=== PATIENT | female | born 1955 | race Caucasian/White ===

== ENCOUNTER → 2023-08-14 13:26 | Outpatient (REF) | payer MEDICARE, OTHER, SELFPAY | LOC: WDC 13:26 | PROVIDERS: ATTENDING PHYSICIAN Physician Assistant Medical | DX: R92.8 Other abnormal and inconclusive findings on diagnostic imaging of breast (principal) | CPT/HCPCS: 77061; 77065 ==

== ENCOUNTER → 2023-09-22 13:01 | Outpatient (REF) | payer MEDICARE, OTHER, SELFPAY | LOC: HWRAD 13:01 | PROVIDERS: ATTENDING PHYSICIAN Family Medicine | DX: Z87.891 Personal history of nicotine dependence (principal) | CPT/HCPCS: 71271 ==

== ENCOUNTER → 2023-11-25 15:26 | Outpatient (REF) | payer MEDICARE, OTHER, SELFPAY | LOC: RAD 15:26 | PROVIDERS: ATTENDING PHYSICIAN Physician Assistant Medical | DX: Z13.6 Encounter for screening for cardiovascular disorders (principal); Z87.891 Personal history of nicotine dependence | CPT/HCPCS: 76770 ==

== ENCOUNTER → 2023-12-24 09:15 | Outpatient (REF) | payer MEDICARE, OTHER, SELFPAY | LOC: DHSLP 09:15 | PROVIDERS: ATTENDING PHYSICIAN Internal Medicine; FAMILY PHYSICIAN Physician Assistant Medical | DX: G47.33 Obstructive sleep apnea (adult) (pediatric) (principal); G47.61 Periodic limb movement disorder | CPT/HCPCS: 95811 ==

== ENCOUNTER → 2024-02-16 12:11 | Outpatient (REF) | payer MEDICARE, OTHER, SELFPAY | LOC: HWWDC 12:11 | PROVIDERS: ATTENDING PHYSICIAN Physician Assistant Medical | DX: Z12.31 Encounter for screening mammogram for malignant neoplasm of breast (principal) | CPT/HCPCS: 77063; 77067 ==

== ENCOUNTER 2024-02-26 06:09 | Inpatient (IN) | payer MEDICARE, OTHER, SELFPAY ==
[2024-02-26] VITALS (11 sets, daily range): BP systolic 126–169; BP diastolic 63–100; BMI 34.6; BMI 31.7
[2024-02-26 02:46] LABS: % Basophils 0.6 % (0-2); % Eosinophils 0.8 % (0-6); % Immature Granulocytes 0.3 % (0-0.5); % Lymphocytes 10.1 % (20.5-51.1); % Monocytes 5.1 % (1.7-9.3); % Neutrophils 83.1 % (42.2-75.2); Absolute Basophils 0.1 10^3/uL (0-0.2); Absolute Eosinophils 0.1 10^3/uL (0-0.7); Absolute Lymphocytes 1.1 10^3/uL (1.2-3.4); Absolute Monocytes 0.6 10^3/uL (0.1-0.6); Hematocrit 43.3 % (37.0-47.0); Hemoglobin 14.9 g/dL (12.0-16.0); Mean Corp Hgb Conc. 34.4 g/dL (33.0-37.0); Mean Corpuscular Hgb 28.8 pg (27.0-31.0); Mean Corpuscular Volume 83.8 fL (81.0-99.0); Mean Platelet Volume 9.9 fL (7.4-10.4); Nucleated Red Blood Cells % 0 %; Platelet Count 274 10^3/uL (130-400); Red Blood Cell Count 5.17 10^6/uL (4.20-5.40); Red Cell Dist. Width 13.3 % (11.5-14.5); White Blood Cell Count 10.8 10^3/uL (4.8-10.8)
[2024-02-26] MEDS: NSS 1000 IV ×2 (02:48→09:38)
[2024-02-26 02:57] LABS: INR 1.12; PT 14.5 Sec (11.4-14.6)
[2024-02-26] MEDS: DILAUDID 0.5 MG IV ×5 (02:57→23:07)
[2024-02-26 02:58] LABS: APTT 26.2 Sec (23.4-35.0)
[2024-02-26 03:12] LABS: Troponin I < 0.012 ng/ml
[2024-02-26 03:16] LABS: ALT (SGPT) 72 U/L (0-35); AST (SGOT) 71 U/L (14-36); Alkaline Phosphatase 158 U/L (38-126); Blood Urea Nitrogen 17 mg/dl (7-17); Calcium 10.3 mg/dl (8.4-10.2); Carbon Dioxide 24 mmol/L (22-30); Chloride 99 mmol/L (98-107); Estimated Creatinine Clearance 53 ml/min; Glucose 192 mg/dl (70-99); Lipase 78 U/L (23-300); Sodium 138 mmol/L (135-145); Total Bilirubin 1.3 mg/dl (0.2-1.3); Total Protein 7.7 g/dl (6.3-8.2); eGFR > 60.00
--- NOTE | 2024-02-26 03:17 | ED.GENMED ---
History of Present Illness
<MARIPOSA Workman - Last Filed: 02/26/24 05:03>
General
Chief Complaint: Abdominal Pain
Time Seen by Provider: 02/26/24 02:25
History of Present Illness
History of Present Illness:
Patient is a 68 y/o female with PMHx/surgical history of Crohns dz with multiple bowel resections, colectomy with end ileostomy, bowel obstruction, migraines, HTN, HLD, anemia, anxiety, depression presenting with abdominal pain x1 day. She states
that she has not been putting anything out of her ileostomy today. She states that at around 6pm she started to get intermittent shooting pain in her abdomen. She states it is all along the left side and into the left flank. She states it started
mild and has continued to get worse. She states that she gets the pain every 10 minutes and it lasts for a minute or two. She states she became nauseous and has had 5 bouts of nonbloody emesis last night. She states she attempted to but an enema
through her ileostomy at around 9pm last night to try to help with the symptoms. She states she has difficulty urinating for a couple years and denies any changes or dysuria. She denies any chest pain, shortness of breath, vision changes.
Past History
<MARIPOSA Workman - Last Filed: 02/26/24 05:03>
Past History
ED Past Medical History: HTN, Psychiatric and Other (Crohn's disease)
ED Past Surgical History: Appendectomy, Bowel resection (Ileostomy) and Other (Multiple surgeries, rectovaginal fistula repair, hernia repair)
Social History
Tobacco: Non-smoker
Alcohol: None
Drug: None
Personal:
Living: with family
Employment: Other
Family History
Family History: Hypertension and Other
Phy Exam
<MARIPOSA Workman - Last Filed: 02/26/24 05:03>
Physical Exam
Physical Exam:
GENERAL: Alert , uncomfortable, in no apparent distress
EYE: pupils equal and reactive
Throat: Airway intact, no exudates
NECK: Supple, no significant adenopathy.
CARDIAC: Regular rate and rhythm .
LUNGS: Clear breath sounds bilaterally, no acute respiratory distress, no wheezes/rales/rhonchi
ABDOMEN: Tenderness to palpation in the entire left quadrant. Soft, nondistended. No cvat. Normoactive bowel sounds.
NEUROLOGICAL: Alert and oriented x3, following commands, no focal neuro deficits. Strength and sensation intact in all upper and lower extremities.
SKIN: Warm and dry, skin intact.
MUSCULOSKELETAL: No edema, well perfused.
PSYCH: Normal and appropriate interaction.
Course
<Fortino Haque [facility] - Last Filed: 02/26/24 05:03>
Orders/Labs/Results
Orders:
Orders
02/26/24 02:25
0.9% Sodium Chloride 1000 ml [Nss] 1,000 ml IV BOLUS
02/26/24 02:26
Electrocardiogram (*1) Stat
Reason for Study: Abdominal Pain
EKG- Treatment ONCE
02/26/24 02:30
Lactic Acid Q4H
Comment: CANCEL 2nd LACTIC ACID IF 1st LACTIC ACID IS LESS THAN 2
02/26/24 02:38
HYDROmorphone [Dilaudid] 0.5 mg .ROUTE .STK-MED ONE
02/26/24 02:39
Complete Blood Count/With Diff Urgent
Comprehensive Metabolic Panel Urgent
Lactic Acid Urgent
Lipase Urgent
PTT Urgent
Prothrombin Time Urgent
Troponin I Urgent
02/26/24 02:55
HYDROmorphone [Dilaudid] 0.5 mg IV NOW STA
02/26/24 03:31
CT Abd/pelvis W Iv Cont Urgent
Comment:
Reason For Exam: diffuse abd pain
02/26/24 04:04
Urinalysis Reflex To Culture Urgent
Date Specimen was Collected: 02/26/24
Time Specimen was Collected: 03:59
02/26/24 06:30
Lactic Acid Q4H
Comment: CANCEL 2nd LACTIC ACID IF 1st LACTIC ACID IS LESS THAN 2
Abnormal Lab Results
02/26/24
02:39
Absolute Neuts (auto) 9.0 H 10^3/uL
(1.4-6.5)
Absolute Lymphs (auto) 1.1 L 10^3/uL
(1.2-3.4)
Neutrophils % 83.1 H %
(42.2-75.2)
Lymphocytes % 10.1 L %
(20.5-51.1)
Glucose 192 H mg/dl
(70-99)
Lactic Acid 3.0 H mmol/L
(0.7-2.0)
Calcium 10.3 H mg/dl
(8.4-10.2)
AST 71 H U/L
(14-36)
ALT 72 H U/L
(0-35)
Alkaline Phosphatase 158 H U/L
(38-126)
02/26/24 02:39
02/26/24 02:39
Vital Signs
Initial and Last Documented VS:
Initial Vital Signs
Temp Pulse Resp BP Pulse Ox
99.4 F 105 22 141/100 95
02/26/24 02:15 02/26/24 02:15 02/26/24 02:15 02/26/24 02:15 02/26/24 02:15
Last Documented Vital Signs
Temp Pulse Resp BP Pulse Ox
99.4 F 105 22 169/74 95
02/26/24 02:15 02/26/24 02:15 02/26/24 02:15 02/26/24 04:05 02/26/24 04:06
<Bienvenido Bautista, DO - Last Filed: 02/26/24 04:53>
Orders/Labs/Results
Orders:
Orders
02/26/24 02:25
0.9% Sodium Chloride 1000 ml [Nss] 1,000 ml IV BOLUS
02/26/24 02:26
Electrocardiogram (*1) Stat
Reason for Study: Abdominal Pain
EKG- Treatment ONCE
02/26/24 02:30
Lactic Acid Q4H
Comment: CANCEL 2nd LACTIC ACID IF 1st LACTIC ACID IS LESS THAN 2
02/26/24 02:38
HYDROmorphone [Dilaudid] 0.5 mg .ROUTE .STK-MED ONE
02/26/24 02:39
Complete Blood Count/With Diff Urgent
Comprehensive Metabolic Panel Urgent
Lactic Acid Urgent
Lipase Urgent
PTT Urgent
Prothrombin Time Urgent
Troponin I Urgent
02/26/24 02:55
HYDROmorphone [Dilaudid] 0.5 mg IV NOW STA
02/26/24 03:31
CT Abd/pelvis W Iv Cont Urgent
Comment:
Reason For Exam: diffuse abd pain
02/26/24 04:04
Urinalysis Reflex To Culture Urgent
Date Specimen was Collected: 02/26/24
Time Specimen was Collected: 03:59
02/26/24 06:30
Lactic Acid Q4H
Comment: CANCEL 2nd LACTIC ACID IF 1st LACTIC ACID IS LESS THAN 2
Abnormal Lab Results
02/26/24
02:39
Absolute Neuts (auto) 9.0 H 10^3/uL
(1.4-6.5)
Absolute Lymphs (auto) 1.1 L 10^3/uL
(1.2-3.4)
Neutrophils % 83.1 H %
(42.2-75.2)
Lymphocytes % 10.1 L %
(20.5-51.1)
Glucose 192 H mg/dl
(70-99)
Lactic Acid 3.0 H mmol/L
(0.7-2.0)
Calcium 10.3 H mg/dl
(8.4-10.2)
AST 71 H U/L
(14-36)
ALT 72 H U/L
(0-35)
Alkaline Phosphatase 158 H U/L
(38-126)
02/26/24 02:39
02/26/24 02:39
Vital Signs
Initial and Last Documented VS:
Initial Vital Signs
Temp Pulse Resp BP Pulse Ox
99.4 F 105 22 141/100 95
02/26/24 02:15 02/26/24 02:15 02/26/24 02:15 02/26/24 02:15 02/26/24 02:15
Last Documented Vital Signs
Temp Pulse Resp BP Pulse Ox
99.4 F 105 22 169/74 95
02/26/24 02:15 02/26/24 02:15 02/26/24 02:15 02/26/24 04:05 02/26/24 04:06
<MARIPOSA Workman - Last Filed: 02/26/24 05:03>
MDM/Problems Addressed
Differential Diagnosis Includes:
Pancreatitis, bowel obstruction, diverticulitis, Crohn's flair
<MARIPOSA Workman - Last Filed: 02/26/24 05:03>
*Pulse Oximetry
Patient hypoxic: no
*EKG
Interpreted by ED Provider?: Yes
EKG Intrepretation Date: 02/26/24
Interpretation: abnormal
Comparison EKG: changes noted (QT lengthened )
Heart Rate: 90
Rate: normal
Rhythm: sinus
[place]: normal axis
Interval: long QT (420)
QRS Pattern: normal QRS
Ischemia: no ischemia
*Pie Maker Interpretation
Rate: Pie Maker- N/A
*Critical Care Note
Total Time (30-74mins, 75-104mins- exclusive of procedures): Not Applicable
<Bienvenido Bautista DO - Last Filed: 02/26/24 04:53>
Update Note
Update Note:
CT abdomen and pelvis with IV contrast
IMPRESSION:
Few dilated loops of small bowel localized to the left hemiabdomen suspicious for obstruction with transition point at the surgical anastomosis, series 201, image 46 for example. Stomach decompressed.
Hepatic steatosis. No cholecystitis or pancreatitis. No obstructing renal stone. Abdominal aorta is of normal caliber.
Finalized at 4:19 AM EST
ED Attending Note
<MARIPOSA Workman - Last Filed: 02/26/24 05:03>
-
Portions of this chart may have been created with voice recognition software.� Occasional wrong word or��sound alike� substitutions may have occurred due to the inherent limitations of voice recognition software.
<Bienvenido Bautista DO - Last Filed: 02/26/24 04:53>
ED Attending Note
Patient seen and examined by attending physician: Yes
I performed the substantive portion of visit, reviewed & personally made and approve the management plan that is documented in note by myself or AMANDA.: Yes
ED Attending Note:
Pleasant 68-year-old female presents with diffuse abdominal pain. Patient has a history of Crohn's disease and had multiple bowel resections. The first in 1993. She recently had an ileostomy 5 years ago. Today around 6 PM she started to get
abdominal pain which was sharp in nature. She states that this pain is reminiscent of previous bowel obstructions. Patient states that the pain comes in waves, every 10 minutes or so. Patient denies fever or chills. Patient attempted to clean
out her ileostomy with an enema but it did not help.
CT abdomen and pelvis with IV contrast
IMPRESSION:
Few dilated loops of small bowel localized to the left hemiabdomen suspicious for obstruction with transition point at the surgical anastomosis, series 201, image 46 for example. Stomach decompressed.
Hepatic steatosis. No cholecystitis or pancreatitis. No obstructing renal stone. Abdominal aorta is of normal caliber.
Finalized at 4:19 AM EST
Discharge Plan
Departure
Patient Disposition: Admit
Date of Disposition: 02/26/24
Time of Disposition: 04:51
Admit to: Telemetry
Presentation/result/management discussed w/ accepting MD/DO: Hospitalist
Discharge Problem:
SBO (small bowel obstruction)
Prescriptions:
No Action
alprazolam 0.5 MG tablet
1.5 mg PO HS
Patient Comments:
08/29/20- [facility] lookup, pt last filled 08/17/20 #90
meclizine 12.5 MG tablet
12.5 mg PO TIDPRN PRN (Reason: vertigo)
famotidine 20 MG tablet
20 mg PO DAILY
nwkvftm-oovnzpxfibggx-hjirmwrb 1 TABLET tablet
1 - 2 tab PO BIDPRN PRN (Reason: headache)
fenofibrate nanocrystallized 145 MG tablet
145 mg PO .W/DINNER
ropinirole 1 MG tablet
3 mg PO HS
pantoprazole 40 MG tablet,delayed release (DR/EC)
40 mg PO HS
escitalopram oxalate 20 MG tablet
20 mg PO DAILY
bupropion HCl 150 MG tablet extended release 24 hr
150 mg PO DAILY
losartan [Cozaar] 100 MG tablet
100 mg PO DAILY
melatonin 10 MG tablet
10 mg PO HS
phenylephrine HCl 10 MG tablet
10 mg PO
Referrals:
Soni Sun PA-C [Family Provider] -
Interventions
Interventions:
*Risk Screen - Suicide Last Done: 02/26/24 02:15
*General Assessment Last Done: 02/26/24 02:15
*Neglect/Abuse Screening Last Done: 02/26/24 02:15
ED- Fall Risk Assessment Last Done: 02/26/24 02:15
*ED COVID-19 Vaccine History Last Done: 02/26/24 02:15
LI-Qzeoru-Otkgqjtwds Assessment Last Done: 02/26/24 03:01
Discharge Date and Time
Print Language: SOMALI
[2024-02-26 04:33] LABS: Urine Albumin Negative (Neg - Trace); Urine Bilirubin Negative (Negative); Urine Character Clear (Clear); Urine Color Yellow; Urine Glucose Negative (Negative); Urine Ketone Negative (Negative); Urine Leukocyte Negative (Negative); Urine Nitrite Negative (Negative); Urine Occult Blood Negative (Negative); Urine Urobilinogen Negative (Neg - 1+)
--- NOTE | 2024-02-26 05:28 | HPS.HSE ---
Family Physician
-
Family Physician: Soni Sun
Chief Complaint
-
abdominal pain, N/V
History of Present Illness
HPI
68F HX Crohn dz with multiple bowel resections, colectomy with end ileostomy, SBO, HTN , anemia seen at ER for evalaution of diffuse abdominal pian.
- associated no ileectomy output
- associated intermittent colicky sharp abdominal pain and along the the left side and into the left flank.
- POS Nausea and 5 bouts of nonbloody emesis last night
ROS
difficulty urinating for a couple years and denies any changes or dysuria.
She denies any chest pain, shortness of breath, vision changes.
Medical History
Past Medical History
Past Medical History: Reports HTN, Psychiatric and Other (crohns dz )
Past Surgical History: Reports Other
Additional Past Surgical History:
Appendectomy, Bowel resection (Ileostomy), Other (Multiple surgeries, rectovaginal fistula repair, hernia repair))
Social History
Tobacco: Non-smoker
Alcohol: None
Drug: None
Personal:
Living: With Family
Family History
Family History: Not pertinent
Allergies / Home Medications
Allergies reflects when Allergies were last updated in [facility].
Home Medications with original date entered in [facility]
Allergy/Medication List:
Allergies
Allergy/AdvReac Type Severity Reaction Status Date / Time
adhesive Allergy blisters Verified 02/26/24 02:15
morphine Allergy Hives Verified 02/26/24 02:15
Home Medications
alprazolam 0.5 mg tablet 1.5 mg PO HS Mental Health/Anxiety 11/25/12
igwjtbi-zectuviolfcez-ivxjtsaa 250 mg-250 mg-65 mg tablet 1 - 2 tab PO BIDPRN PRN headache 07/30/20
famotidine 20 mg tablet 20 mg PO DAILY 07/30/20
fenofibrate nanocrystallized 145 mg tablet 145 mg PO .W/DINNER High cholesterol 07/30/20
meclizine 12.5 mg tablet 12.5 mg PO TIDPRN PRN vertigo 07/30/20
bupropion HCl 150 mg 24 hr tablet, extended release 150 mg PO DAILY Mental Health/Anxiety 08/29/20
escitalopram oxalate 20 mg tablet 20 mg PO DAILY Mental Health/Anxiety 08/29/20
pantoprazole 40 mg tablet,delayed release 40 mg PO HS Gastrointestinal issue 08/29/20
ropinirole 1 mg tablet 7 mg PO HS restless leg syndrome 08/29/20
losartan 100 mg tablet (Cozaar) 100 mg PO DAILY 10/20/21
melatonin 10 mg tablet 10 mg PO HS 10/20/21
phenylephrine HCl 10 mg tablet 10 mg PO Daily PRN Migranes 10/21/21
metformin 500 mg tablet 500 mg PO Daily 02/26/24
Review of Systems
-
Constitutional: Reports No Symptoms
EENT: Reports No Symptoms
Respiratory: Reports No Symptoms
Cardiac: Reports No Symptoms
Abdomen/GI: Reports Abdominal Pain, Nausea and Vomiting
: Reports No Symptoms
Musculoskeletal: Reports No Symptoms
Skin: Reports No Symptoms
Neurological: Reports No Symptoms
Endocrine: Reports No Symptoms
Hematologic/Lymphatic: Reports No Symptoms
Psych: Reports No Symptoms
Physical Exam
Vital Signs
Vital Signs
Temp Pulse Resp BP Pulse Ox
99.4 F 105 22 169/74 95
02/26/24 02:15 02/26/24 02:15 02/26/24 02:15 02/26/24 04:05 02/26/24 04:06
Physical Exam
General: Well Developed, Well Nourished and No Apparent Distress
HEENT: NormoCephalic
Respiratory: Clear
Cardiac: S1/S2
Breast: Deferred by me
GI: Soft, Non Tender, Normal Bowel Sounds (sluggish ) and Ostomy (no out put )
Rectal: Deferred by Provider
Musculoskeletal: No Edema
Neuro: AO x 3 and No Motor Deficits
Psych: Calm and Intact Judgment/Insight
Laboratory Results
-
02/26/24 02:39
02/26/24 02:39
Laboratory Results
PT 14.5 Sec (11.4-14.6) 02/26/24 02:39
INR 1.12 02/26/24 02:39
APTT 26.2 Sec (23.4-35.0) 02/26/24 02:39
Lactic Acid 3.0 mmol/L (0.7-2.0) H 02/26/24 02:39
Total Bilirubin 1.3 mg/dl (0.2-1.3) 02/26/24 02:39
AST 71 U/L (14-36) H 02/26/24 02:39
ALT 72 U/L (0-35) H 02/26/24 02:39
Alkaline Phosphatase 158 U/L (38-126) H 02/26/24 02:39
Troponin I < 0.012 ng/ml 02/26/24 02:39
Lipase 78 U/L (23-300) 02/26/24 02:39
Data Reviewed
-
CT Scan: Report Reviewed by me
Lab Data: Labs Reviewed by me
Impression/Plan
-
Data
Unremarkable CBC
Unremarkable BMP
BG 190
Pending LA
Ca 10.3
AST 71 - baseline 50s to 70s
ALT 72 - baseline 30s to 40s
AKP 160
NEG TPNI
NEG UA
EKG
NORMAL SINUS RHYTHM
NONSPECIFIC ST ABNORMALITY
PROLONGED QT
ABNORMAL ECG
WHEN COMPARED WITH ECG OF 02-JUL-2020 13:05,
QT HAS LENGTHENED
CT A w IV contrast
suspicious for SBO with transition point at the surgical anastomosis
Hepatic steatosis
Last hospitalist admission: 10/20/21 - 10/23/21
P DXs:
SBO
Dehydration
chr mild transaminitis due to Hepatic steatosis
ASSESSMENT & PLAN
Pending Rx reconciliation
SBO likely 2/2 adhesions form prior multiple surgeries
HX Crohn disease
HX end ileostomy,
- associated dehydration
- CT suspicious for SBO with transition point at the surgical anastomosis
- NPO/IVF/Pain control/anti-emetics
- GS consulted
Chr mild transaminitis flare related to SBO and underlying hepatic statosis
- follow CMP
GERD
- PPI
Knwon HX
Essential HTN
Mood disorder
HLD
Anxiety/Depression
- Hold all home regimen due to NPO for SBO
DVT ppx: LMWH
Code: Full
IP MS
[2024-02-26 06:43] LABS: Lactic Acid 1.9 mmol/L (0.7-2.0)
[2024-02-26] MEDS: TIGAN 200 MG IM (07:06)
--- NOTE | 2024-02-26 08:34 | CON.GS ---
Addendum entered and electronically signed by Sukhjinder Morales MD 02/26/24 11:27:
Patient seen and examined.
Patient is a 68 yo F with a PMH of depression/anxiety, RLS, AMAYA, iron deficiency anemia, DAWSON, and Crohn's disease s/p multiple operations ultimately resulting in a TAC with end ileostomy and multiple prior SBR's c/b several ventral incisional
hernias repaired primarily. All of her prior procedures have been performed at outside hospitals. She currently follows at [facility] with Dr. Robles. She has had recurrent issues with SBO's. Her most recent admission to was back in 2021, which
was able to be managed medically. Ms. Avalos presents with 24 hours of abdominal pain, nausea, vomiting. She has not had significant stoma output over the past 24 hours. Currently she states that her symptoms are improved, but still present.
No fevers. Of note, she is not currently on any treatment for her Crohn's disease.
Gen: NAD
Abd: soft, tender to palpation in LEFT abdomen, moderate distension, obese, non-peritoneal (no rebound or guarding)
Labs and CT scan imaging was reviewed.
Patient is a 68 yo F p/w SBO secondary to adhesions versus Crohn's disease
Patient well versed on the natural history and pathophysiology of bowel obstructions. No clinical or radiographic concerns for bowel ischemia, pneumatosis, or perforation. Recommend trial of medical management. GI consult given history of Crohn's
disease. Discussed that should he have she had further episodes of nausea or vomiting would recommend placement of an NG tube. Patient refusing at this time. All questions answered.
-- NPO, IVF, NGT placement if further nausea or emesis (refusing at this time)
-- Correct lytes, OOB, minimize narcotics
-- GI consult
Original Note:
Medical History
-
History of Present Illness:
Ms Avalos is a 68 yo female with h/o recurrent SBO's, Crohn's for which she follows at [facility] with Dr. Robles and 14 prior abdominal surgeries for bowel resections and hernia repairs with prior colostomy and now an ileostomy. She has been admitted
for multiple bowel obstructions in the past with her last admission being in 2021 here at with resolution with medical management alone at that time. At home, she notes intermittent obstructions which she has been able to manage on her own with
bowel rest. Yesterday, she began developing abdominal pain around 6:30pm. She ordered dinner at a restaurant with her but was unable to eat it. Later that night, her pain worsened and she began vomiting. She notes she vomited brown liquid
and undigested food. She tried a fleet enema via her stoma as this occasionally helps when she has obstructive symptoms but with no results. She notes that she has not noted any stool or flatus via her stoma since yesterday morning. On exam, the
abdomen is distended with tenderness to the LUQ. There is a soft, large parastomal hernia present without tenderness. She notes she has not vomited or had nausea since receiving Zofran in the Ed.
Past Medical History
Past Medical History: GERD, HTN, Psychiatric (Depression, anxiety) and Other (Crohn's, RLS, AMAYA, Iron deficiency anemia, DAWSON, migraine)
Past Surgical History: Appendectomy, Bowel Resection (multiple: hemicolectomy 1993 and subsequent completion colectomy with ileostomy 2017, multiple ex laps with SBR), Hernia Repair (ventral (several)), Orthopedic (laminectomy, BL TKR) and Other
(rectovaginal fistula repair 1993)
Social History
Tobacco: Former Smoker
Alcohol: Occasional
Family History
Family History: Reviewed & Not Pertinent
Allergies / Home Medications
Allergy/AdvReac Type Severity Reaction Status Date / Time
adhesive Allergy blisters Verified 02/26/24 02:15
morphine Allergy Hives Verified 02/26/24 02:15
�Medication �Instructions �Recorded �Confirmed �Type
alprazolam 0.5 mg tablet 1.5 mg PO HS Mental Health/Anxiety 11/25/12 02/26/24 History
famotidine 20 mg tablet 20 mg PO DAILY 07/30/20 02/26/24 History
fenofibrate nanocrystallized 145 145 mg PO QPM High cholesterol 07/30/20 02/26/24 History
mg tablet
meclizine 12.5 mg tablet 12.5 mg PO TIDPRN PRN vertigo 07/30/20 02/26/24 History
bupropion HCl 150 mg 24 hr tablet, 150 mg PO DAILY Mental 08/29/20 02/26/24 History
extended release Health/Anxiety
escitalopram oxalate 20 mg tablet 20 mg PO DAILY Mental 08/29/20 02/26/24 History
Health/Anxiety
pantoprazole 40 mg tablet,delayed 40 mg PO HS Gastrointestinal issue 08/29/20 02/26/24 History
release
losartan 100 mg tablet (Cozaar) 100 mg PO DAILY 10/20/21 02/26/24 History
melatonin 10 mg tablet 10 mg PO HS 10/20/21 02/26/24 History
ynkxnvu-mktozdveuqlvi-tektxlup 250 2 tab PO BIDPRN PRN migraines 02/26/24 02/26/24 History
mg-250 mg-65 mg tablet (Excedrin
Migraine)
metformin 500 mg tablet,extended 500 mg PO QPM 02/26/24 02/26/24 History
release 24 hr
ropinirole 3 mg tablet 3 mg PO HS 02/26/24 02/26/24 History
ropinirole 4 mg tablet 4 mg PO HS 02/26/24 02/26/24 History
Review of Systems
-
History Source: Patient and Family
All other systems: Negative unless noted
A 10 point review of systems was completed, and was negative except as per HPI.
Physical Exam
Vital Signs
Temp Pulse Resp BP Pulse Ox
99.4 F 105 22 149/76 93
02/26/24 02:15 02/26/24 02:15 02/26/24 02:15 02/26/24 07:08 02/26/24 07:08
02/25/24 02/26/24 02/27/24
06:59 06:59 06:59
Actual Weight 83 kg
Body Mass Index (BMI) 34.6
Lab Results
02/26/24 02:39
02/26/24 02:39
WBC 10.8 10^3/uL (4.8-10.8) 02/26/24 02:39
Hgb 14.9 g/dL (12.0-16.0) 02/26/24 02:39
Hct 43.3 % (37.0-47.0) 02/26/24 02:39
Plt Count 274 10^3/uL (130-400) 02/26/24 02:39
Abs Immat Gran (auto) 0.0 10^3/uL (0-0.05) 02/26/24 02:39
Neutrophils % 83.1 % (42.2-75.2) H 02/26/24 02:39
Physical Exam
General: Well Developed and Well Nourished
HEENT: Moist Mucous Membranes
Respiratory: Non Labored Respirations
GI: Soft, Tender (LUQ), Distended (mild) and Other (stoma pink, viable. Parastomal hernia present)
Skin: Warm and Dry
Neuro: Awake, Alert and AO x 3
Psych: Calm
Data Reviewed
-
CT Scan: Image Personally Visualized and interpreted, Report Reviewed by me, Discussed with Physician, Discussed with Patient and Discussed with Family
Labs: Labs Reviewed by me, Discussed with Physician and Discussed with Patient
Old Records: Reviewed
Assessment / Plan
-
68 yo female with a h/o Crohn's, recurrent SBO's and 14 prior abdominal surgeries for bowel resections and hernia repairs with prior colostomy and now an ileostomy who developed abdominal pain yesterday localizing to the the left raegan-abdomen with
nausea and vomiting. Currently more comfortable in the ER but without flatus/stool output from stoma for about [address] abdomen reviewed with transition point near a prior anastomosis site although study limited due to lack of PO contrast,
parastomal hernia present but does not appear to be the cause of her current obstruction. SBO likely secondary to stricture vs crohn's flare vs adhesions. AFVSS. Currently nausea resolved. Tender to exam to the left abdomen but otherwise
comfortable.
--Continue NPO, ok for ice chips
--IVF while NPO
--Analgesics/antiemetics
--Consider NGT if vomiting recurs
--Would consult GI to follow along as well given Crohn's history
--May need contrast imaging if no improvement with bowel rest and supportive measures
[2024-02-26] MEDS: OFIRMEV 100 IV ×2 (11:52→16:36)
--- NOTE | 2024-02-26 12:23 | CON.GI ---
Addendum entered and electronically signed by Eva Aldridge MD 02/26/24 16:49:
I saw and examined the patient.
The STEERSMAN's note was reviewed and I agree with the note.
Impression:
--Small bowel obstruction- recurrent . Possible etiology-active Crohn's disease versus adhesions from prior surgeries
-- History of severe fistulizing Crohn's disease (initially diagnosed in ) status post total colectomy with end ileostomy-> follows with Dr. Robles at [facility]. Currently not on any maintenance therapy (patient refused treatment in the
past)
plan
Patient refused NG tube on this admission
Surgical consultation reviewed. Follow-up surgical recommendation
Follow serial abdominal exam/abdominal x-ray
Patient needs to follow-up with GI at [facility] as outpatient-strongly advised she has to be on maintenance therapy for fistulizing Crohn's disease
Original Note:
Consultation
-
Date/Time Consultation Requested: 02/26/24 0920
Date/Time Consultation Performed: 02/26/24 1145
Requesting Provider: ZHOU Us
Performing Provider: Dr. Aldridge/ZHOU Arellano
Reason for Consultation: SBO, hx Crohns disease
Medical History
Chief Complaint / HPI
Chief Complaint: left sided abd pain, no ostomy output
History of Present Illness:
68-year-old female with past medical history of Crohn's disease, depression, anxiety, RLS, AMAYA, iron deficiency anemia, recurrent small bowel obstructions, obstructive sleep apnea followed by Dr. Robles at [facility] for gastroenterology (had
appointment last week) who has not been on any medication for this since 1993 (was only on Asacol and Prednisone in the past), 14 prior abdominal surgeries for bowel resections and hernia repairs with prior colostomy. She eventually had a total
colectomy and now has an ileostomy. History of rectovaginal fistula in the past. Also states that she had a fistula that went down into her groin after having a vein surgery. The patient states that that initial vein surgery is what eventually
led to her Crohn's diagnosis. She states that she was told that it involved her colon. She eventually ended up with a colectomy with ileostomy. The only medication she was ever on for Crohn's disease was Asacol and prednisone. She states that
this gave her abdominal discomfort and she never went on medications after this, this was at her request. Her current physician would want her to go back on medication however she is declining. The patient had an MRI enteroscopy within the past
year that shows recurrent fistula but no abscess per the patient. The patient states that she usually gets small bowel obstructions usually once a year. That usually resolves with some bowel rest or enemas via her ostomy. She states that
yesterday she got up and noticed that she had minimal output from her ileostomy. She got up she showered she changed her bag. She had some left-sided discomfort which is unusual as she usually has right-sided discomfort when she has these
episodes. When she did not have any ostomy output or gas in the bag with increasing abdominal discomfort also associated with nausea and vomiting she proceeded to come to the emergency room. She still has had no ostomy output or flatus within the
bag. She had progressive nausea and vomiting. She has stopped vomiting but has persistent nausea. She still has pain in the left side. She is refusing NG tube. She denies any fevers, chills, recent change in stool color prior to this.
Past Medical History
Past Medical History: HTN and Other (Crohn's disease, depression, anxiety, RLS, AMAYA, iron deficiency anemia, small bowel obstructions, obstructive sleep apnea)
Past Surgical History: Other (Appendectomy, bowel resection (hemicolectomy 1993 subsequent completion colectomy with ileostomy 2017, multiple ex lap's with SBR, hernia repair multiple, laminectomy, bilateral TKR, rectovaginal fistula repair 1993,
vein surgery right leg 1993)
Social History
Tobacco: Non-Smoker
Alcohol: None
Drug: None
Personal:
Living: With Family
Family History
Family History: Other (No family history of gastrointestinal malignancy or IBD)
Allergies / Home Medications
Allergy/AdvReac Type Severity Reaction Status Date / Time
adhesive Allergy blisters Verified 02/26/24 02:15
morphine Allergy Hives Verified 02/26/24 02:15
�Medication �Instructions �Recorded
alprazolam 0.5 mg tablet 1.5 mg PO HS Mental Health/Anxiety 11/25/12
famotidine 20 mg tablet 20 mg PO DAILY 07/30/20
fenofibrate nanocrystallized 145 145 mg PO QPM High cholesterol 07/30/20
mg tablet
meclizine 12.5 mg tablet 12.5 mg PO TIDPRN PRN vertigo 07/30/20
bupropion HCl 150 mg 24 hr tablet, 150 mg PO DAILY Mental 08/29/20
extended release Health/Anxiety
escitalopram oxalate 20 mg tablet 20 mg PO DAILY Mental 08/29/20
Health/Anxiety
pantoprazole 40 mg tablet,delayed 40 mg PO HS Gastrointestinal issue 08/29/20
release
losartan 100 mg tablet (Cozaar) 100 mg PO DAILY 10/20/21
melatonin 10 mg tablet 10 mg PO HS 10/20/21
uicafcl-hrmflhhxvario-sqolprsh 250 2 tab PO BIDPRN PRN migraines 02/26/24
mg-250 mg-65 mg tablet (Excedrin
Migraine)
metformin 500 mg tablet,extended 500 mg PO QPM 02/26/24
release 24 hr
ropinirole 3 mg tablet 3 mg PO HS 02/26/24
ropinirole 4 mg tablet 4 mg PO HS 02/26/24
Review of Systems
-
All other systems: A 12 pt ROS was Negative except as stated above in HPI
Vital Signs
Temp Pulse Resp BP Pulse Ox
99 F 92 18 156/86 93
02/26/24 09:39 02/26/24 09:39 02/26/24 09:39 02/26/24 09:39 02/26/24 09:39
Physical Exam
Exam
General: No Apparent Distress
HEENT: Anicteric
Respiratory: Clear (Anterior)
Cardiac: Regular Rhythm
GI: Other (Soft however some firmness to the left upper quadrant, hypoactive bowel sounds, tenderness left upper quadrant/left mid abdomen, ileostomy stoma right lower quadrant no ostomy output)
Musculoskeletal: No Edema
Skin: Warm and Dry
Neuro: AO x 3
Psych: Calm
Results
WBC 10.8 10^3/uL (4.8-10.8) 02/26/24 02:39
Hgb 14.9 g/dL (12.0-16.0) 02/26/24 02:39
Hct 43.3 % (37.0-47.0) 02/26/24 02:39
MCV 83.8 fL (81.0-99.0) 02/26/24 02:39
Plt Count 274 10^3/uL (130-400) 02/26/24 02:39
Absolute Neuts (auto) 9.0 10^3/uL (1.4-6.5) H 02/26/24 02:39
PT 14.5 Sec (11.4-14.6) 02/26/24 02:39
INR 1.12 02/26/24 02:39
APTT 26.2 Sec (23.4-35.0) 02/26/24 02:39
Sodium 138 mmol/L (135-145) 02/26/24 02:39
Potassium 4.0 mmol/L (3.5-5.1) 02/26/24 02:39
Chloride 99 mmol/L (98-107) 02/26/24 02:39
Carbon Dioxide 24 mmol/L (22-30) 02/26/24 02:39
BUN 17 mg/dl (7-17) 02/26/24 02:39
Creatinine 1.0 mg/dL (0.6-1.0) 02/26/24 02:39
Calcium 10.3 mg/dl (8.4-10.2) H 02/26/24 02:39
Total Bilirubin 1.3 mg/dl (0.2-1.3) 02/26/24 02:39
AST 71 U/L (14-36) H 02/26/24 02:39
ALT 72 U/L (0-35) H 02/26/24 02:39
Alkaline Phosphatase 158 U/L (38-126) H 02/26/24 02:39
Lipase 78 U/L (23-300) 02/26/24 02:39
Diagnostic Image Results:
CT abdomen and pelvis with IV contrast 02/26/2024:
1. Extensive postsurgical changes within the abdomen and pelvis with multiple prior enterotomies and prior colectomy with right lower quadrant diverting ileostomy with fat containing parastomal hernia. Within the left midabdomen, just proximal to
a prior small bowel anastomosis, there are several matted and mildly distended small bowel loops with mild mesenteric engorgement and fluid with decompression of the bowel distal to the anastomosis suspicious for a partial small bowel obstruction.
Questionable mild wall thickening proximal to the anastomosis.
2. Hepatic steatosis.
3. Additional findings abov
Prior GI Procedures:
EGD: Unavailable to me
Colonoscopy: Unavailable to me
Assessment / Plan
-
68-year-old female with past medical history of Crohn's disease, depression, anxiety, RLS, AMAYA, iron deficiency anemia, recurrent small bowel obstructions, obstructive sleep apnea followed by Dr. Robles at [facility] for gastroenterology (had
appointment last week) who has not been on any medication for this since 1993 (was only on Asacol and Prednisone in the past), 14 prior abdominal surgeries for bowel resections and hernia repairs with prior colostomy. She eventually had a total
colectomy and now has an ileostomy. History of rectovaginal fistula in the past. Also states that she had a fistula that went down into her groin after having a vein surgery. The patient states that that initial vein surgery is what eventually
led to her Crohn's diagnosis. She states that she was told that it involved her colon. She eventually ended up with a colectomy with ileostomy. The only medication she was ever on for Crohn's disease was Asacol and prednisone. She states that
this gave her abdominal discomfort and she never went on medications after this, this was at her request. Her current physician would want her to go back on medication however she is declining. The patient had an MRI enteroscopy within the past
year that shows recurrent fistula but no abscess per the patient. Patient presents with abrupt cessation of ileostomy output yesterday now 24 hours. Also associated with nausea and vomiting. No further nausea or vomiting. Declined NG tube.
Left-sided abdominal discomfort, all prior time she had bowel obstruction it was always associated in the right. CT imaging showing left upper quadrant cluster of proximal small bowel loops which appear matted together with small bowel feces sign
with mild enlargement and edema within the adjacent mesentery with trace fluid fluid. There appears to be a transition point at the posterior surgical anastomosis with questionable wall thickening at this juncture.
Impression:
Small bowel obstruction
History of Crohn's disease-> follows with Dr. Robles at [facility](saw last week) per patient was advised to start medication for Crohn's disease as had MR enterography positive for fistulous disease.
-> Discussed with patient. She does not want to go on any medications. She does not even want to discuss the thought.
-> Has sent message to her primary count team member through the portal.
Plan:
-As per surgery for management for small bowel obstruction
-Discussed with patient that if she has worsening symptoms would recommend NG tube. At this time she is declining
-Patient has already had an MR enteroscopy with her primary count team member. States it had fistulous disease without abscess.
-Further recommendations to be forthcoming.
-
-
Thank you for consultation and allowing me to participate in the patient's care. Please call the correctional program specialist GI physician during the after hours with any questions or concerns.
--- NOTE | 2024-02-26 12:42 | W.PN.HOSP.TC ---
Today's Communication/Plan
-
Monitor vital signs see plan
NG tube if nauseous and vomiting
Fluids, pain control. Bowel rest
PPI IV
hydralazine IV PRN
Nonbillable note
Assessment / Plan
Assessment / Plan
General: Well Developed, Well Nourished and No Apparent Distress
HEENT: NormoCephalic
Respiratory: Clear
Cardiac: S1/S2
Breast: Deferred by me
GI: Soft, Non Tender, and Ostomy (no out put )
Rectal: Deferred by Provider
Musculoskeletal: No Edema
Neuro: AO x 3 and No Motor Deficits
Psych: Calm and Intact Judgment/Insight
SBO likely 2/2 adhesions form prior multiple surgeries
HX Crohn disease
HX end ileostomy,
- associated dehydration
- CT suspicious for SBO with transition point at the surgical anastomosis
- NPO/IVF/Pain control/anti-emetics
-General Surgery following
GI consulted, history of Crohn's. Follows up with Dr. Robles outpatient
Chr mild transaminitis flare related to SBO and underlying hepatic statosis
- follow CMP
GERD
- PPI IV
[place] HX
Essential HTN; IV hydralazine as needed.
Mood disorder
HLD
Anxiety/Depression
- Hold all home regimen due to NPO for SBO
DVT ppx: LMWH
Code: Full
Anticipated Discharge: > 48 hours
Subjective/Interval History
-
Date of Service: February 26, 2024
denies pain
Objective Data
-
Labs:
Laboratory Results
02/26/24
02:39
WBC 10.8
Hgb 14.9
Hct 43.3
Plt Count 274
PT 14.5
INR 1.12
APTT 26.2
Sodium 138
Potassium 4.0
Chloride 99
Carbon Dioxide 24
BUN 17
Creatinine 1.0
Glucose 192 H
Calcium 10.3 H
Total Bilirubin 1.3
AST 71 H
ALT 72 H
Alkaline Phosphatase 158 H
Vital Signs:
Vital Signs
Temp Pulse Resp BP Pulse Ox
99 F 92 18 156/86 93
02/26/24 09:39 02/26/24 09:39 02/26/24 09:39 02/26/24 09:39 02/26/24 09:39
[2024-02-26 12:55] LABS: Glucose - Point of Care 120 mg/dl (70-99)
--- NOTE | 2024-02-26 13:53 | WOUNDNOTE ---
NACHO RN NOTE: Asked to see patient for ostomy needs by nursing. Patient has had an Ileostomy for several years and confirmed she is independent with care. Patient's stoma is pink and budded, using [employer] clear one piece with clip, supplies at
bedside. Patient states her only complaint is that her stool is always liquid and sometimes drains allot. Made patient aware of high output pouch option to night time drainage system. Will update discharge instructions with information for patient.
Nurse Mendoza made aware patient seen and independent with care, no other skin issues, will sign off.
[2024-02-26 16:09] LABS: Glucose - Point of Care 124 mg/dl (70-99)
[2024-02-26] MEDS: NOVOLOG FLEXPEN-LOW RESISTANCE SC (16:11)
--- NOTE | 2024-02-26 16:15 | PTCARENOTE ---
Assumed care of patient at 16:00.
[2024-02-26] MEDS: ZOFRAN 4 MG IV (18:51)
[2024-02-26] MEDS: NSS (PRESERVATIVE FREE) 0.25 ML IV (22:29)
[2024-02-26] MEDS: ATIVAN 0.5 MG IV (22:29)
[2024-02-26] MEDS: NSS (PRESERVATIVE FREE) 10 ML IV (22:31)
[2024-02-26] MEDS: PROTONIX IV 40 MG IV (22:31)
[2024-02-27 00:34] LABS: Glucose - Point of Care 122 mg/dl (70-99)
[2024-02-27] MEDS: NSS 1000 IV (03:13)
[2024-02-27] MEDS: OFIRMEV 100 IV ×2 (05:30)
[2024-02-27 05:55] LABS: Glucose - Point of Care 113 mg/dl (70-99)
[2024-02-27 07:13] VITALS: BP 105/60
[2024-02-27] MEDS: NOVOLOG FLEXPEN-LOW RESISTANCE SC ×3 (07:30→17:00)
[2024-02-27 08:06] LABS: % Basophils 0.5 % (0-2); % Immature Granulocytes 0.2 % (0-0.5); % Lymphocytes 23.3 % (20.5-51.1); % Monocytes 11.4 % (1.7-9.3); % Neutrophils 61.6 % (42.2-75.2); Absolute Eosinophils 0.1 10^3/uL (0-0.7); Absolute Lymphocytes 0.9 10^3/uL (1.2-3.4); Absolute Monocytes 0.5 10^3/uL (0.1-0.6); Absolute Neutrophils 2.5 10^3/uL (1.4-6.5); Hematocrit 39.7 % (37.0-47.0); Hemoglobin 13.2 g/dL (12.0-16.0); Mean Corp Hgb Conc. 33.2 g/dL (33.0-37.0); Mean Corpuscular Hgb 29.7 pg (27.0-31.0); Mean Corpuscular Volume 89.4 fL (81.0-99.0); Mean Platelet Volume 10.8 fL (7.4-10.4); Nucleated Red Blood Cells % 0 %; Platelet Count 171 10^3/uL (130-400); Red Blood Cell Count 4.44 10^6/uL (4.20-5.40); Red Cell Dist. Width 13.2 % (11.5-14.5)
--- NOTE | 2024-02-27 09:01 | W.PN.GS2 ---
Today's Communication / Plan
-
Start clears
Assessment / Plan
-
Patient is a 68 yo F with h/o multiple abdominal surgeries including prior colostomy and now an ileostomy p/w SBO secondary to adhesions versus Crohn's disease
AFVSS
No leukocytosis
Beginning to pass some flatus, pain improved
-- Trial of clear liquids
-- IVF as per primary team
-- GI following with us
Subjective Data
-
Date of Service: February 27, 2024
Patient seen and examined at bedside with Dr. Bruce. Tom. Notes improvement in pain. Denies n/v. Passing some flatus now via stoma.
Objective Data
-
Intake and Output
02/26/24 02/27/24 02/28/24
06:59 06:59 06:59
Intake Total 1000 / 1000
Output Total 570 / 570
Balance 430 / 430
Intake:
Oral fluids 0 / 0
IV fluids (Total) 800 / 800
IV piggybacks 200 / 200
Output:
Liquid stool amount 570 / 570
Ileostomy 570 / 570
Other:
Number of approximated MODERATE 4
amounts of urine
Vital Signs
Temp Pulse Resp BP Pulse Ox
98.8 F 84 14 105/60 94
02/27/24 07:13 02/27/24 07:13 02/27/24 07:13 02/27/24 07:13 02/27/24 07:13
Lab Results
02/27/24 07:07
Calcium 10.3 mg/dl (8.4-10.2) H 02/26/24 02:39
Total Bilirubin 1.3 mg/dl (0.2-1.3) 02/26/24 02:39
AST 71 U/L (14-36) H 02/26/24 02:39
ALT 72 U/L (0-35) H 02/26/24 02:39
Alkaline Phosphatase 158 U/L (38-126) H 02/26/24 02:39
Total Protein 7.7 g/dl (6.3-8.2) 02/26/24 02:39
Albumin 5.0 g/dl (3.5-5.0) 02/26/24 02:39
Physical Exam
-
NAD
ABD soft, minimal distention, mild LLQ tenderness, stoma pink/viable with parastomal hernia noted (soft), some flatus in appliance.
[2024-02-27 10:15] LABS: ALT (SGPT) 50 U/L (0-35); AST (SGOT) 42 U/L (14-36); Albumin 3.8 g/dl (3.5-5.0); Alkaline Phosphatase 108 U/L (38-126); Blood Urea Nitrogen 10 mg/dl (7-17); Calcium 8.5 mg/dl (8.4-10.2); Carbon Dioxide 24 mmol/L (22-30); Chloride 103 mmol/L (98-107); Estimated Creatinine Clearance 72 ml/min; Glucose 124 mg/dl (70-99); Potassium 3.6 mmol/L (3.5-5.1); Sodium 137 mmol/L (135-145); Total Bilirubin 1.2 mg/dl (0.2-1.3); Total Protein 6.1 g/dl (6.3-8.2); eGFR > 60.00
--- NOTE | 2024-02-27 11:02 | W.PN.GI.CBS2 ---
Today's Communication / Plan
-
CLD
Assessment / Plan
-
68-year-old female with past medical history of Crohn's disease, depression, anxiety, RLS, AMAYA, iron deficiency anemia, recurrent small bowel obstructions, obstructive sleep apnea followed by Dr. Robles at [facility] for gastroenterology (had
appointment last week) who has not been on any medication for this since 1993 (was only on Asacol and Prednisone in the past), 14 prior abdominal surgeries for bowel resections and hernia repairs with prior colostomy. She eventually had a total
colectomy and now has an ileostomy. History of rectovaginal fistula in the past. Also states that she had a fistula that went down into her groin after having a vein surgery. The patient states that that initial vein surgery is what eventually
led to her Crohn's diagnosis. She states that she was told that it involved her colon. She eventually ended up with a colectomy with ileostomy. The only medication she was ever on for Crohn's disease was Asacol and prednisone. She states that
this gave her abdominal discomfort and she never went on medications after this, this was at her request. Her current physician would want her to go back on medication however she is declining. The patient had an MRI enteroscopy within the past
year that shows recurrent fistula but no abscess per the patient. Patient presents with abrupt cessation of ileostomy output yesterday now 24 hours. Also associated with nausea and vomiting. No further nausea or vomiting. Declined NG tube.
Left-sided abdominal discomfort, all prior time she had bowel obstruction it was always associated in the right. CT imaging showing left upper quadrant cluster of proximal small bowel loops which appear matted together with small bowel feces sign
with mild enlargement and edema within the adjacent mesentery with trace fluid fluid. There appears to be a transition point at the posterior surgical anastomosis with questionable wall thickening at this juncture.
Impression:
Impression:
--Small bowel obstruction- recurrent . Possible etiology-active Crohn's disease versus adhesions from prior surgeries. Clinically resolving now
-- History of severe fistulizing Crohn's disease (initially diagnosed in 94) status post total colectomy with end ileostomy-> follows with Dr. Robles at [facility]. Currently not on any maintenance therapy (patient refused treatment in the
past)
plan
Clear liquid diet. Advance diet as per surgery
Surgical consultation reviewed.
Patient needs to follow-up with GI at [facility] as outpatient on discharge-strongly advised she has to be on maintenance therapy for fistulizing Crohn's disease
No further GI recommendation at this point. will s/o
Total Time Spent with Patient (in minutes): 35
Subjective
Subjective
Date of Service: February 27, 2024
Feeling better. Denies abdominal pain/nausea/vomiting now. Passing liquid stool through ostomy since last night.
Objective
Data Reviewed
Laboratory Data:
Laboratory Results
02/27/24 07:07
02/27/24 07:07
Laboratory Results
PT 14.5 Sec (11.4-14.6) 02/26/24 02:39
INR 1.12 02/26/24 02:39
APTT 26.2 Sec (23.4-35.0) 02/26/24 02:39
Total Bilirubin 1.2 mg/dl (0.2-1.3) 02/27/24 07:07
AST 42 U/L (14-36) H 02/27/24 07:07
ALT 50 U/L (0-35) H 02/27/24 07:07
Alkaline Phosphatase 108 U/L (38-126) 02/27/24 07:07
Lipase 78 U/L (23-300) 02/26/24 02:39
Vital Signs and I&O:
Vital Signs
Temp Pulse Resp BP Pulse Ox
98.8 F 84 14 105/60 95
02/27/24 07:13 02/27/24 07:13 02/27/24 07:13 02/27/24 07:13 02/27/24 08:30
I&O
02/26/24 02/27/24 02/28/24
06:59 06:59 06:59
Intake Total 1000 / 1000
Output Total 570 / 570
Balance 430 / 430
Physical Exam
Physical Exam
GI: Soft, Non Distended, Non Tender and Other (ostomy - liquid stool )
[2024-02-27 12:19] LABS: Glucose - Point of Care 144 mg/dl (70-99)
--- NOTE | 2024-02-27 12:30 | W.PN.HOSP.TC ---
Today's Communication/Plan
-
Monitor vital signs see plan
Restart home meds
Started on clears, if tolerates then can DC fluids
Assessment / Plan
Assessment / Plan
General: Well Developed, Well Nourished and No Apparent Distress
HEENT: NormoCephalic
Respiratory: Clear
Cardiac: S1/S2
Breast: Deferred by me
GI: Soft, Non Tender, and Ostomy
Rectal: Deferred by Provider
Musculoskeletal: No Edema
Neuro: AO x 3 and No Motor Deficits
Psych: Calm and Intact Judgment/Insight
SBO likely 2/2 adhesions form prior multiple surgeries
HX Crohn disease
HX end ileostomy,
- associated dehydration
- CT suspicious for SBO with transition point at the surgical anastomosis
Clears, if continues to tolerate then can DC fluids, pain control
-General Surgery following
GI following, history of Crohn's. Follows up with Dr. Robles outpatient
Chr mild transaminitis flare related to SBO and underlying hepatic statosis
- follow CMP
GERD
- PPI IV
Essential HTN; IV hydralazine as needed. Hold losartan for now as blood pressure soft
Mood disorder
HLD
Anxiety/Depression
Restart home meds
DVT ppx: Lovenox
Code: Full
Anticipated Discharge: 24 - 48 hours
Subjective/Interval History
-
Date of Service: February 27, 2024
Denies pain
Objective Data
-
Labs:
Laboratory Results
02/27/24
07:07
WBC 4.0 L
Hgb 13.2
Hct 39.7
Plt Count 171 D
Sodium 137
Potassium 3.6
Chloride 103
Carbon Dioxide 24
BUN 10
Creatinine 0.7
Glucose 124 H
Calcium 8.5 D
Total Bilirubin 1.2
AST 42 H
ALT 50 H
Alkaline Phosphatase 108
Vital Signs:
Vital Signs
Temp Pulse Resp BP Pulse Ox
98.8 F 84 14 105/60 95
02/27/24 07:13 02/27/24 07:13 02/27/24 07:13 02/27/24 07:13 02/27/24 08:30
I&O
02/26/24 02/27/24 02/28/24
06:59 06:59 06:59
Intake Total 1000 / 1000
Output Total 570 / 570
Balance 430 / 430
[2024-02-27] MEDS: WELLBUTRIN XL (24 hour extended release) 150 MG PO (13:22)
[2024-02-27] MEDS: LEXAPRO 20 MG PO (13:22)
[2024-02-27 15:46] VITALS: BP 154/70
--- NOTE | 2024-02-27 16:21 | CHAP ---
Ms. Avalos was gracious and in good spirits. She said she's doing better. Emotional and spiritual support provided.
[2024-02-27 17:01] LABS: Glucose - Point of Care 91 mg/dl (70-99)
[2024-02-27] MEDS: TRICOR 145 MG PO (17:36)
[2024-02-27] MEDS: LOVENOX 40 MG SC (17:36)
[2024-02-27] MEDS: NSS IV (17:58)
[2024-02-27 19:50] LABS: Hepatitis C Antibody Negative (Negative)
[2024-02-27 21:14] LABS: Glucose - Point of Care 59 mg/dl (70-99)
[2024-02-27 21:35] LABS: Glucose - Point of Care 97 mg/dl (70-99)
[2024-02-27] MEDS: NSS (PRESERVATIVE FREE) 10 ML IV (22:17)
[2024-02-27] MEDS: PROTONIX IV 40 MG IV (22:17)
[2024-02-27] MEDS: MELATONIN 10 MG PO (22:17)
[2024-02-27] MEDS: REQUIP 6 MG PO (22:18)
[2024-02-27] MEDS: XANAX 1.5 MG PO (22:19)
[2024-02-27] MEDS: REQUIP 1 MG PO (22:19)
[2024-02-27 23:00] VITALS: BP 116/84
[2024-02-27 23:53] LABS: Glucose - Point of Care 94 mg/dl (70-99)
[2024-02-28 01:41] LABS: Glucose - Point of Care 102 mg/dl (70-99)
[2024-02-28] MEDS: ZOFRAN 4 MG IV ×3 (02:51→23:54)
[2024-02-28 04:05] LABS: Glucose - Point of Care 115 mg/dl (70-99)
[2024-02-28 07:01] VITALS: BP 170/85
[2024-02-28 07:38] LABS: Glucose - Point of Care 130 mg/dl (70-99)
[2024-02-28] MEDS: NOVOLOG FLEXPEN-LOW RESISTANCE SC ×2 (07:40→12:00)
[2024-02-28 07:53] LABS: % Basophils 0.5 % (0-2); % Eosinophils 4.3 % (0-6); % Immature Granulocytes 0.2 % (0-0.5); % Lymphocytes 27.9 % (20.5-51.1); % Monocytes 9.5 % (1.7-9.3); % Neutrophils 57.6 % (42.2-75.2); Absolute Eosinophils 0.2 10^3/uL (0-0.7); Absolute Lymphocytes 1.2 10^3/uL (1.2-3.4); Absolute Monocytes 0.4 10^3/uL (0.1-0.6); Absolute Neutrophils 2.4 10^3/uL (1.4-6.5); Hematocrit 40.1 % (37.0-47.0); Hemoglobin 13.2 g/dL (12.0-16.0); Mean Corp Hgb Conc. 32.9 g/dL (33.0-37.0); Mean Corpuscular Hgb 29.5 pg (27.0-31.0); Mean Corpuscular Volume 89.5 fL (81.0-99.0); Mean Platelet Volume 10.2 fL (7.4-10.4); Nucleated Red Blood Cells % 0 %; Platelet Count 201 10^3/uL (130-400); Red Blood Cell Count 4.48 10^6/uL (4.20-5.40); Red Cell Dist. Width 12.9 % (11.5-14.5); White Blood Cell Count 4.2 10^3/uL (4.8-10.8)
[2024-02-28 08:33] LABS: ALT (SGPT) 47 U/L (0-35); AST (SGOT) 44 U/L (14-36); Alkaline Phosphatase 118 U/L (38-126); Blood Urea Nitrogen 4 mg/dl (7-17); Calcium 9.1 mg/dl (8.4-10.2); Carbon Dioxide 27 mmol/L (22-30); Chloride 102 mmol/L (98-107); Estimated Creatinine Clearance 72 ml/min; Glucose 135 mg/dl (70-99); Potassium 3.8 mmol/L (3.5-5.1); Sodium 137 mmol/L (135-145); Total Protein 6.3 g/dl (6.3-8.2); eGFR > 60.00
[2024-02-28] MEDS: LEXAPRO 20 MG PO (08:52)
[2024-02-28] MEDS: WELLBUTRIN XL (24 hour extended release) 150 MG PO (09:40)
--- NOTE | 2024-02-28 11:34 | W.PN.HOSP.TC ---
Today's Communication/Plan
-
Monitor vital signs see plan
Abdominal x-ray
Surgery following
Currently on clears
Monitor LFTs
Assessment / Plan
Assessment / Plan
General: Well Developed, Well Nourished and No Apparent Distress
HEENT: NormoCephalic
Respiratory: Clear
Cardiac: S1/S2
Breast: Deferred by me
GI: Soft, Non Tender, and Ostomy
Rectal: Deferred by Provider
Musculoskeletal: No Edema
Neuro: AO x 3 and No Motor Deficits
Psych: Calm and Intact Judgment/Insight
SBO likely 2/2 adhesions form prior multiple surgeries
HX Crohn disease
HX end ileostomy,
- associated dehydration
- CT suspicious for SBO with transition point at the surgical anastomosis
Clears,, pain control. has some nausea today and decrease output per patient and RN; check abdominal xray
-General Surgery following
GI following, history of Crohn's. Follows up with Dr. Robles outpatient
Chr mild transaminitis flare related to SBO and underlying hepatic statosis
- follow CMP
GERD
- PPI IV
Essential HTN; IV hydralazine as needed. Hold losartan for now as blood pressure soft
Mood disorder
HLD
Anxiety/Depression
Restart home meds
DVT ppx: Lovenox
Code: Full
Anticipated Discharge: Within 24 hours
Subjective/Interval History
-
Date of Service: February 28, 2024
has some nausea today
Objective Data
-
Labs:
Laboratory Results
02/28/24
06:58
WBC 4.2 L
Hgb 13.2
Hct 40.1
Plt Count 201
Sodium 137
Potassium 3.8
Chloride 102
Carbon Dioxide 27
BUN 4 L
Creatinine 0.7
Glucose 135 H
Calcium 9.1
Total Bilirubin 1.0
AST 44 H
ALT 47 H
Alkaline Phosphatase 118
Vital Signs:
Vital Signs
Temp Pulse Resp BP Pulse Ox
98.3 F 76 16 170/85 95
02/28/24 07:01 02/28/24 07:01 02/28/24 07:01 02/28/24 07:01 02/28/24 08:35
I&O
02/27/24 02/28/24 02/29/24
06:59 06:59 06:59
Intake Total 1000 / 1000 1800 / 1800
Output Total 570 / 570 1000 / 1000
Balance 430 / 430 800 / 800
[2024-02-28 12:00] LABS: Glucose - Point of Care 122 mg/dl (70-99)
--- NOTE | 2024-02-28 13:01 | W.PN.GS2 ---
Today's Communication / Plan
-
FLD
Assessment / Plan
-
Patient is a 68 yo F with h/o multiple abdominal surgeries including prior colostomy and now an ileostomy p/w SBO secondary to adhesions versus Crohn's disease
AFVSS
No leukocytosis
Passing flatus and small stool. Pain improved but with intermittent nausea
-- Trial of full liquids
-- If no improvement may need PO contrast study
-- IVF as per primary team
-- GI following with us
Subjective Data
-
Date of Service: February 28, 2024
Patient seen and examined at bedside with Dr. Telles. Denies vomiting but had one episode of nausea last night and this am. Passing a lot of flatus from stoma and a small amount of liquid stool. Minimal abdominal discomfort.
Objective Data
-
Intake and Output
02/27/24 02/28/24 02/29/24
06:59 06:59 06:59
Intake Total 1000 / 1000 1800 / 1800
Output Total 570 / 570 1000 / 1000
Balance 430 / 430 800 / 800
Intake:
Oral fluids 0 / 0 920 / 920
IV fluids (Total) 800 / 800 880 / 880
IV piggybacks 200 / 200
Output:
Liquid stool amount 570 / 570 1000 / 1000
Ileostomy 570 / 570 1000 / 1000
Other:
Number of approximated MODERATE 4 3
amounts of urine
Vital Signs
Temp Pulse Resp BP Pulse Ox
98.3 F 76 16 170/85 95
02/28/24 07:01 02/28/24 07:01 02/28/24 07:01 02/28/24 07:01 02/28/24 08:35
Lab Results
02/28/24 06:58
02/28/24 06:58
Calcium 9.1 mg/dl (8.4-10.2) 02/28/24 06:58
Total Bilirubin 1.0 mg/dl (0.2-1.3) 02/28/24 06:58
AST 44 U/L (14-36) H 02/28/24 06:58
ALT 47 U/L (0-35) H 02/28/24 06:58
Alkaline Phosphatase 118 U/L (38-126) 02/28/24 06:58
Total Protein 6.3 g/dl (6.3-8.2) 02/28/24 06:58
Albumin 4.0 g/dl (3.5-5.0) 02/28/24 06:58
Physical Exam
-
NAD
ABD soft, minimal distention, mild LLQ tenderness, stoma pink/viable with parastomal hernia noted (soft), some flatus/stool in appliance.
[2024-02-28 15:34] VITALS: BP 153/75
--- NOTE | 2024-02-28 16:21 | PTCARENOTE ---
Received patient this am AAOx3. Pt complained of nausea this am. Medicated with Zofran IV with moderated relief. Pt is passing flatus through ileostomy, however no stool output. Dr. Pavon an Dr. Telles made aware this am. Pt off unit for abdominal
Xray this am. Pt's diet increased to full liquids by colon rectal service. Pt tolerated full liquids. Still no stool out put. Pt OOB and tolerated well. Offered no further complaints. Made pt comfortable. Cont to assess patient status.
--- NOTE | 2024-02-28 16:39 | CM ---
met with patient at bedside.she lives with her spouse in [facility] with [address] sel[address],her bed nd bath is on the first level,she sees katie SE[facility] and uses [facility] in [place].s
he has had vn at home after her surgeries.she has never been in ip rehab.
PMH:anxiety,depression,colectomy with end ileostomy,crohn's disease,
patient adm with sbo,on iv protonix,full liqluids trial,ivf,gi following.patient has been I and should dc home with no needs.Plan:home with no needs.
[2024-02-28 16:48] LABS: Glucose - Point of Care 225 mg/dl (70-99)
[2024-02-28] MEDS: LOVENOX 40 MG SC (17:35)
[2024-02-28] MEDS: TRICOR 145 MG PO (17:35)
[2024-02-28] MEDS: NOVOLOG FLEXPEN-LOW RESISTANCE 2 UNITS SC (17:36)
[2024-02-28 21:19] LABS: Glucose - Point of Care 108 mg/dl (70-99)
[2024-02-28] MEDS: MELATONIN 10 MG PO (21:58)
[2024-02-28] MEDS: NSS (PRESERVATIVE FREE) 10 ML IV (21:59)
[2024-02-28] MEDS: PROTONIX IV 40 MG IV (21:59)
[2024-02-28] MEDS: REQUIP 6 MG PO (21:59)
[2024-02-28] MEDS: XANAX 1.5 MG PO (22:00)
[2024-02-28] MEDS: REQUIP 1 MG PO (22:00)
[2024-02-28 23:21] VITALS: BP 127/67
[2024-02-29 03:28] LABS: Glucose - Point of Care 124 mg/dl (70-99)
[2024-02-29] MEDS: DILAUDID 0.5 MG IV (04:45)
[2024-02-29 07:33] VITALS: BP 149/85
[2024-02-29 07:53] LABS: % Basophils 0.7 % (0-2); % Eosinophils 5.7 % (0-6); % Immature Granulocytes 0.2 % (0-0.5); % Lymphocytes 29.8 % (20.5-51.1); % Monocytes 9.8 % (1.7-9.3); % Neutrophils 53.8 % (42.2-75.2); Absolute Eosinophils 0.3 10^3/uL (0-0.7); Absolute Lymphocytes 1.3 10^3/uL (1.2-3.4); Absolute Monocytes 0.4 10^3/uL (0.1-0.6); Absolute Neutrophils 2.4 10^3/uL (1.4-6.5); Hematocrit 39.8 % (37.0-47.0); Hemoglobin 13.3 g/dL (12.0-16.0); Mean Corp Hgb Conc. 33.4 g/dL (33.0-37.0); Mean Corpuscular Hgb 29.6 pg (27.0-31.0); Mean Corpuscular Volume 88.4 fL (81.0-99.0); Nucleated Red Blood Cells % 0 %; Platelet Count 209 10^3/uL (130-400); Red Cell Dist. Width 12.9 % (11.5-14.5); White Blood Cell Count 4.4 10^3/uL (4.8-10.8)
[2024-02-29 08:08] LABS: Glucose - Point of Care 112 mg/dl (70-99)
[2024-02-29] MEDS: NOVOLOG FLEXPEN-LOW RESISTANCE SC ×2 (08:20→16:53)
[2024-02-29] MEDS: WELLBUTRIN XL (24 hour extended release) 150 MG PO (08:21)
[2024-02-29] MEDS: LEXAPRO 20 MG PO (08:21)
[2024-02-29 09:02] LABS: ALT (SGPT) 47 U/L (0-35); AST (SGOT) 43 U/L (14-36); Albumin 4.3 g/dl (3.5-5.0); Alkaline Phosphatase 116 U/L (38-126); Blood Urea Nitrogen 5 mg/dl (7-17); Calcium 9.3 mg/dl (8.4-10.2); Carbon Dioxide 30 mmol/L (22-30); Chloride 100 mmol/L (98-107); Estimated Creatinine Clearance 72 ml/min; Glucose 128 mg/dl (70-99); Potassium 4.2 mmol/L (3.5-5.1); Sodium 138 mmol/L (135-145); Total Bilirubin 0.9 mg/dl (0.2-1.3); Total Protein 6.8 g/dl (6.3-8.2); eGFR > 60.00
[2024-02-29] MEDS: MAXALT MLT (ORALLY DISINTEGRATING) 10 MG PO (09:06)
--- NOTE | 2024-02-29 10:40 | CM ---
Patient seen bedside, reports she is hopeful to discharge home today. Patient confirms she has transportation home from her . IMM reviewed, signed, placed in chart. CM will continue to follow for all discharge planning needs.
Plan; home with , no needs.
[2024-02-29 11:22] LABS: Glucose - Point of Care 164 mg/dl (70-99)
--- NOTE | 2024-02-29 11:22 | W.PN.GS2 ---
Addendum entered and electronically signed by Gene Hawkins MD 02/29/24 16:15:
I saw and examined the patient independently.
The Video Library Assistant's note was reviewed and I agree with the note, assessment and plan except where noted below.
Comment: This is a 68-year-old female multiple prior abdominal surgeries including colostomy status post subtotal colectomy with end ileostomy who presents with recurrent small bowel obstruction secondary to adhesions. Now with return of bowel
function.
Advance to low residue diet.
Bowel regimen
Will continue to follow clinically.
Original Note:
Today's Communication / Plan
-
Advancement of diet to low residue
Assessment / Plan
-
Patient is a 68 yo F with h/o multiple abdominal surgeries including prior colostomy and now an ileostomy p/w SBO secondary to adhesions versus Crohn's disease
AFVSS
WBC improving
Passing flatus and small stool. Pain improved
- Tolerated full liquids; trial of low residue today
- GI following with us
- Overall significant clinically improved
Time Spent
Total Time Spent with Patient (in minutes): 15
Subjective Data
-
Date of Service: February 29, 2024
Interval data: Denies nausea and vomiting. Passing flatus and liquid stool from stoma. Minimal abdominal discomfort.
Objective Data
-
Intake and Output
02/28/24 02/29/24 03/01/24
06:59 06:59 06:59
Intake Total 1800 / 1800 1110 / 1110
Output Total 1000 / 1000 450 / 450
Balance 800 / 800 660 / 660
Intake:
Oral fluids 920 / 920 1110 / 1110
IV fluids (Total) 880 / 880
Output:
Liquid stool amount 1000 / 1000 450 / 450
Ileostomy 1000 / 1000 450 / 450
Other:
Number of approximated MODERATE 3 4
amounts of urine
Vital Signs
Temp Pulse Resp BP Pulse Ox
98.3 F 76 18 149/85 92
02/29/24 07:33 02/29/24 07:33 02/29/24 07:33 02/29/24 07:33 02/29/24 07:33
Lab Results
02/29/24 07:14
02/29/24 07:14
Calcium 9.3 mg/dl (8.4-10.2) 02/29/24 07:14
Total Bilirubin 0.9 mg/dl (0.2-1.3) 02/29/24 07:14
AST 43 U/L (14-36) H 02/29/24 07:14
ALT 47 U/L (0-35) H 02/29/24 07:14
Alkaline Phosphatase 116 U/L (38-126) 02/29/24 07:14
Total Protein 6.8 g/dl (6.3-8.2) 02/29/24 07:14
Albumin 4.3 g/dl (3.5-5.0) 02/29/24 07:14
Physical Exam
-
General: No apparent distress
Abdomen: Soft, minimal distention, mild diffuse tenderness, stoma pink/viable with parastomal hernia. Some flatus/stool in the appliance.
[2024-02-29] MEDS: NOVOLOG FLEXPEN-LOW RESISTANCE 1 UNITS SC (11:27)
--- NOTE | 2024-02-29 14:45 | W.PN.HOSP.TC ---
Today's Communication/Plan
-
possible d/c today
Assessment / Plan
Assessment / Plan
SBO likely 2/2 adhesions form prior multiple surgeries
Hx Crohn disease
Hx end ileostomy,
- CT suspicious for SBO with transition point at the surgical anastomosis
-General Surgery following and help appreciated
-have small past like stool in ostomy bag with gas.
-GI following, history of Crohn's. Follows up with Dr. Robles outpatient
-Tried on LR diet today
Chronic mild transaminitis flare
-likely related to SBO and underlying hepatic steatosis
-follow CMP
GERD
-maintain on PPI IV
Essential HTN
- resume back on home meds
Possible diabetes
-will provide glucometer scripts
-getting Hbg a1c and other lab check with PCP in next few days
Mood disorder
HLD
Anxiety/Depression
Restart home meds
DVT ppx: Lovenox
Code: Full
Anticipated Discharge: Today
Subjective/Interval History
-
Date of Service: February 29, 2024
have some abd pain
no nausea/vomiting
passing gas
Objective Data
-
Labs:
Laboratory Results
02/29/24
07:14
WBC 4.4 L
Hgb 13.3
Hct 39.8
Plt Count 209
Sodium 138
Potassium 4.2
Chloride 100
Carbon Dioxide 30
BUN 5 L
Creatinine 0.7
Glucose 128 H
Calcium 9.3
Total Bilirubin 0.9
AST 43 H
ALT 47 H
Alkaline Phosphatase 116
Vital Signs:
Vital Signs
Temp Pulse Resp BP Pulse Ox
98.3 F 76 18 149/85 92
02/29/24 07:33 02/29/24 07:33 02/29/24 07:33 02/29/24 07:33 02/29/24 07:33
I&O
02/28/24 02/29/24 03/01/24
06:59 06:59 06:59
Intake Total 1800 / 1800 1110 / 1110
Output Total 1000 / 1000 450 / 450
Balance 800 / 800 660 / 660
Review of Systems
-
Respiratory: Reports No Symptoms
Cardiac: Reports No Symptoms
Abdomen/GI: Reports No Symptoms
Physical Exam
-
General: No Apparent Distress and Comfortable
HEENT: Negative Oxygen
Respiratory: Clear to Auscultation
Cardiac: Regular Rhythm and S1/S2; Negative Murmur or Rub
GI: Soft, Nontender, Nondistended, Normal Bowel Sounds and Other (ostomy with small hard stool)
Musculoskeletal: No Edema
Neuro: Awake, Alert, Oriented, No Motor Deficits and Nonfocal/Grossly Intact
Psych: Calm
[2024-02-29 15:43] VITALS: BP 150/72
--- NOTE | 2024-02-29 15:59 | PTCARENOTE ---
Pt tolerating low residue diet. Denies nausea or ab pain. Small amount of pasty soft brown stool in ileostomy.
[2024-02-29 16:14] LABS: Glucose - Point of Care 141 mg/dl (70-99)
[2024-02-29] MEDS: TRICOR 145 MG PO (17:15)
[2024-02-29] MEDS: LOVENOX SC (17:15)
--- NOTE | 2024-03-01 07:28 | W.DCSUMMARY ---
Discharge Summary
Discharge Data
Date of Admission: 02/26/24
Date of Discharge: 02/29/24
-
Pending Results: No
Hospital Course
Discharging Physician : Dr Chaim Gillis
Disposition : Home
Primary care physician : Dr Soni Sun
Principal Discharge diagnosis :
Small bowel obstruction from adhesion from previous abdominal surgeries
Chronic Discharge diagnosis :
History fistulizing Crohn's disease
History of ileostomy
Gastroesophageal reflux disease
Essential hypertension
Mood disorder
Hyperlipidemia
Hospital Course :
Patient is a 68-year-old female with no mentioned past medical history came to ER for having new onset of abdominal pain with associated nausea and vomiting. Patient have complex history of abdominal surgeries in the past and previous small bowel
obstruction. Patient had a CT abdomen pelvis in ER confirming episode of small bowel obstruction. General surgery was involved in care and patient was planned to be managed conservatively. Patient have active Crohn's disease and GI was involved
in care as well due to imaging questioning of fistulous Crohn's disease. GI recommended patient to follow-up with primary GI at [facility] post improvement of small bowel obstruction for further monitoring/treatment of fistulizing
Crohn's disease. With conservative management patient symptoms improved and patient was passing small amount of pasty stool in the bag. Patient diet was advanced which patient tolerated without any complication. Patient was discharged to home at
this point with plan to follow-up in GI in office.
Important imaging findings :
None
Procedure findings :
None
Discharge Plan
-
Patient Disposition: Home (Routine Discharge)
Discharge Diagnosis/Procedures: Small bowel obstruction
Condition: Fair
Diet: Low Residue
Activity: As tolerated
Driving Restrictions: As prior to admission
Bathing Restrictions: OK to Shower
Activity Restrictions/Additional Instructions:
HIGH OUTPUT APPLIANCE
[employer] comes in a 2 piece system to use only when having large output.
Drainable high output 2 3/4' transparent #[id number] or opaque #[id number]
To be used with 2 3/4' precut wafer or can use 2 3/4' Natura skin barrier- moldable with accordion flange # [id number]
Night time drainage container set # [id number] (contains 1 drainage container with tubing, cover and adapter.)
Referrals:
Soni Sun PA-C [Family Provider] - in one week
Prescriptions:
New
(DME) blood-glucose meter [[employer]eli[employer] All-In-One Meter] Kit
Qty: 1 0RF
Rx Instructions:
As Directed
Continued
alprazolam 0.5 MG tablet
1.5 mg PO HS
meclizine 12.5 MG tablet
12.5 mg PO TIDPRN PRN (Reason: vertigo)
famotidine 20 MG tablet
20 mg PO DAILY
fenofibrate nanocrystallized 145 MG tablet
145 mg PO QPM
pantoprazole 40 MG tablet,delayed release (DR/EC)
40 mg PO HS
escitalopram oxalate 20 MG tablet
20 mg PO DAILY
bupropion HCl 150 MG tablet extended release 24 hr
150 mg PO DAILY
losartan [Cozaar] 100 MG tablet
100 mg PO DAILY
melatonin 10 MG tablet
10 mg PO HS
ropinirole 3 mg Tablet
3 mg PO HS
Rx Instructions:
take with 4mg tab for total of 7mg
metformin 500 mg Tablet Extended Release 24 Hr
500 mg PO QPM
Excedrin Migraine 250-250-65 mg Tablet
2 tab PO BIDPRN PRN (Reason: migraines)
ropinirole 4 mg Tablet
4 mg PO HS
Rx Instructions:
take with 3mg tab for total of 7mg
rizatriptan 10 mg Tablet
10 mg PO
Rx Instructions:
take 1 tab at onset of headache; if no relief may repeat 1 tab after at least 2 hrs; max = 3 tabs/24hr
Discharge Orders:
Discharge Patient (As Directed); Ordered 02/29/24
Ordered By: Chaim Gillis
Discharge Date and Time
Discharge Date/Time: 02/29/24 19:07
Print Language: FRISIAN
== END 2024-02-29 19:07 | disposition home or self-care (01) | DRG 389 ==
LOC: 4 EAST ACU 06:09
PROVIDERS: Internal Medicine; ADMITTING PHYSICIAN Internal Medicine; ATTENDING PHYSICIAN Hospitalist; CONSULT PHYSICIAN Internal Medicine Gastroenterology; CONSULT PHYSICIAN Surgery; EMERGENCY PHYSICIAN Student in an Organized Health Care Education/Training Program; FAMILY PHYSICIAN Physician Assistant Medical
DX: K56.51 Intestinal adhesions [bands], with partial obstruction (principal); K50.90 Crohn's disease, unspecified, without complications; F32.A Depression, unspecified; F41.9 Anxiety disorder, unspecified; G43.909 Migraine, unspecified, not intractable, without status migrainosus; E86.0 Dehydration; K21.9 Gastro-esophageal reflux disease without esophagitis; G25.81 Restless legs syndrome; K43.5 Parastomal hernia without obstruction or gangrene; G47.33 Obstructive sleep apnea (adult) (pediatric); E11.9 Type 2 diabetes mellitus without complications; K76.0 Fatty (change of) liver, not elsewhere classified; D50.9 Iron deficiency anemia, unspecified; I10 Essential (primary) hypertension; E78.00 Pure hypercholesterolemia, unspecified; Z96.653 Presence of artificial knee joint, bilateral; Z90.49 Acquired absence of other specified parts of digestive tract; Z93.2 Ileostomy status; Z88.5 Allergy status to narcotic agent; Z91.048 Other nonmedicinal substance allergy status; Z87.891 Personal history of nicotine dependence
CPT/HCPCS: 74022; 74177; 80053; 81003; 82962; 83605; 83690; 84484; 85025; 85610; 85730; 86140; 86803; 93005; 96361; 96374; 99285; Q9967

== ENCOUNTER → 2024-04-21 12:14 | Outpatient (REF) | payer MEDICARE, OTHER, SELFPAY | LOC: PAVMRI 12:14 | PROVIDERS: ATTENDING PHYSICIAN Internal Medicine Gastroenterology; FAMILY PHYSICIAN Physician Assistant Medical | DX: K50.819 Crohn's disease of both small and large intestine with unspecified complications (principal); K63.2 Fistula of intestine | CPT/HCPCS: 72197; A9575 ==

== ENCOUNTER → 2024-07-28 11:44 | Outpatient (REF) | payer MEDICARE, OTHER, SELFPAY | LOC: PAVMRI 11:44 | PROVIDERS: ATTENDING PHYSICIAN Physician Assistant Surgical; FAMILY PHYSICIAN Physician Assistant Medical | DX: M48.062 Spinal stenosis, lumbar region with neurogenic claudication (principal); M43.16 Spondylolisthesis, lumbar region; M54.16 Radiculopathy, lumbar region | CPT/HCPCS: 72158; A9575 ==

== ENCOUNTER → 2025-01-26 12:51 | Outpatient (REF) | payer MEDICARE, OTHER, SELFPAY | LOC: HWRAD 12:51 | PROVIDERS: ATTENDING PHYSICIAN Orthopaedic Surgery Adult Reconstructive Orthopaedic Surgery; FAMILY PHYSICIAN Physician Assistant Medical | DX: Z96.652 Presence of left artificial knee joint (principal) | CPT/HCPCS: 73700 ==

== ENCOUNTER → 2025-02-11 06:50 | Outpatient (REF) | payer MEDICARE, OTHER, SELFPAY | LOC: MRI 06:50 | PROVIDERS: ATTENDING PHYSICIAN Anesthesiology; FAMILY PHYSICIAN Physician Assistant Medical | DX: M54.16 Radiculopathy, lumbar region (principal) | CPT/HCPCS: 72148 ==

== ENCOUNTER → 2025-03-01 15:10 | Outpatient (REF) | payer MEDICARE, OTHER, SELFPAY ==
[2025-03-01 16:20] LABS: Hematocrit 38.7 % (37.0-47.0); Hemoglobin 13.2 g/dL (12.0-16.0); Mean Corp Hgb Conc. 34.1 g/dL (33.0-37.0); Mean Corpuscular Volume 87.8 fL (81.0-99.0); Nucleated Red Blood Cells % 0 %; Platelet Count 243 10^3/uL (130-400); Red Cell Dist. Width 12.8 % (11.5-14.5)
[2025-03-01 16:52] LABS: ALT (SGPT) 38 U/L (0-35); AST (SGOT) 37 U/L (14-36); Albumin 4.5 g/dl (3.5-5.0); Alkaline Phosphatase 110 U/L (38-126); Blood Urea Nitrogen 19 mg/dl (7-17); Calcium 9.9 mg/dl (8.4-10.2); Carbon Dioxide 27 mmol/L (22-30); Chloride 100 mmol/L (98-107); Glucose 110 mg/dl (70-99); Iron 89 ug/dl (37-170); Potassium 4.1 mmol/L (3.5-5.1); Sodium 137 mmol/L (135-145); Total Protein 7.4 g/dl (6.3-8.2); eGFR > 60.00
[2025-03-01 16:53] LABS: C-Reactive Protein 5.30 mg/L (0.0-10.00)
[2025-03-01 17:10] LABS: Vitamin D, 25-OH*** 63.4 ng/mL (30-80)
[2025-03-01 17:28] LABS: Ferritin 26.7 ng/ml (11.1-264.0)
[2025-03-01 17:43] LABS: Vitamin B12 548 pg/ml (239-931)
== END ==
LOC: REG 15:10
PROVIDERS: ATTENDING PHYSICIAN Internal Medicine Gastroenterology; FAMILY PHYSICIAN Physician Assistant Medical
DX: K50.819 Crohn's disease of both small and large intestine with unspecified complications (principal)
CPT/HCPCS: 36415; 80053; 82306; 82607; 82728; 83540; 84466; 85025; 86140

== ENCOUNTER → 2025-04-18 13:00 | Outpatient (REF) | payer MEDICARE, OTHER, SELFPAY | LOC: HWRAD 13:00 | PROVIDERS: ATTENDING PHYSICIAN Physician Assistant Medical | DX: Z87.891 Personal history of nicotine dependence (principal); M85.80 Other specified disorders of bone density and structure, unspecified site; R05.9 Cough, unspecified; R53.83 Other fatigue; M85.89 Other specified disorders of bone density and structure, multiple sites | CPT/HCPCS: 71046; 71271; 77080 ==

== ENCOUNTER → 2025-06-02 09:53 | Outpatient (REF) | payer MEDICARE, OTHER, SELFPAY | LOC: RAD 09:53 | PROVIDERS: ATTENDING PHYSICIAN Internal Medicine Gastroenterology; FAMILY PHYSICIAN Physician Assistant Medical | DX: K50.819 Crohn's disease of both small and large intestine with unspecified complications (principal); R11.2 Nausea with vomiting, unspecified | CPT/HCPCS: 74221 ==

== ENCOUNTER 2025-06-06 02:09 | Inpatient (IN) | payer MEDICARE, OTHER, SELFPAY ==
[2025-06-05 22:54] VITALS: BP 118/84
[2025-06-05 23:31] VITALS: BMI 33.8
[2025-06-05] MEDS: NSS 1000 IV (23:34)
[2025-06-05] MEDS: DILAUDID 1 MG IV (23:34)
[2025-06-05] MEDS: ZOFRAN 4 MG IV (23:34)
[2025-06-05 23:54] LABS: Hematocrit 43.1 % (37.0-47.0); Hemoglobin 14.6 g/dL (12.0-16.0); Mean Corp Hgb Conc. 33.9 g/dL (33.0-37.0); Mean Corpuscular Volume 86.7 fL (81.0-99.0); Nucleated Red Blood Cells % 0 %; Platelet Count 288 10^3/uL (130-400); Red Cell Dist. Width 13.4 % (11.5-14.5)
[2025-06-06 00:07] LABS: ALT (SGPT) 46 U/L (0-35); AST (SGOT) 43 U/L (14-36); Albumin 4.8 g/dl (3.5-5.0); Alkaline Phosphatase 149 U/L (38-126); Blood Urea Nitrogen 16 mg/dl (7-17); Calcium 10.1 mg/dl (8.4-10.2); Carbon Dioxide 24 mmol/L (22-30); Chloride 103 mmol/L (98-107); Estimated Creatinine Clearance 61 ml/min; Glucose 181 mg/dl (70-99); Lipase 130 U/L (23-300); Potassium 4.2 mmol/L (3.5-5.1); Sodium 139 mmol/L (135-145); Total Protein 7.7 g/dl (6.3-8.2); eGFR > 60.00
[2025-06-06 01:00] VITALS: BP 147/75
--- NOTE | 2025-06-06 01:04 | ED.GENMED ---
History of Present Illness
General
Chief Complaint: Abdominal Symptoms
Time Seen by Provider: 06/05/25 23:23
History of Present Illness
History of Present Illness:
70-year-old female with history of Crohn's disease status post multiple bowel resections with ostomy placement presenting to the emergency department for nausea, vomiting, abdominal pain. Patient reports symptoms started acutely tonight. Also
reports decreased stool output. She is concern for bowel obstruction. Notes that her last bowel obstruction was this past December. Denies fever. Denies chest pain or difficulty breathing. Notes that she usually receives Dilaudid for pain. Denies
additional acute medical complaints
Past History
Past History
ED Past Medical History: HTN, Psychiatric and Other (Crohn's disease)
ED Past Surgical History: Appendectomy, Bowel resection (Ileostomy) and Other (Multiple surgeries, rectovaginal fistula repair, hernia repair)
Social History
Tobacco: Non-smoker
Alcohol: None
Drug: None
Personal:
Living: with family
Employment: Other
Family History
Family History: Hypertension and Other
Phy Exam
Physical Exam
Physical Exam:
General: Well-appearing, no clinical signs of dehydration, nontoxic and in no acute distress
HEENT: protecting airway
Neck: appears supple
CV: Normal heart rate, regular rhythm
Resp: No accessory muscle use, no increased work of breathing
Abd: Generalized nonfocal tenderness, no significant distention. Mild stool output in the ostomy. Active retching and vomiting
Extremities: No deformities, no swelling
Neuro: alert, no focal neurologic deficit
: deferred
Rectal: deferred
Psych: Normal affect
Skin: Intact
Course
Orders/Labs/Results
Orders:
Orders
06/05/25 23:28
CT Abd/Pel (IV only)-DH only Urgent
Comment:
Reason For Exam: N/V/multiple bowel obstructions in the past
Urinalysis Reflex To Culture Urgent
Date Specimen was Collected: 06/06/25
Time Specimen was Collected: 00:56
0.9% Sodium Chloride 1000 ml [Nss] 1,000 ml IV BOLUS
HYDROmorphone [Dilaudid] 1 mg IV NOW STA
Ondansetron Injectable [Zofran] 4 mg IV NOW STA
06/05/25 23:41
Complete Blood Count/With Diff Urgent
Lactic Acid Urgent
06/05/25 23:42
Comprehensive Metabolic Panel Urgent
Lipase Urgent
06/06/25 01:18
0.9% Sodium Chloride 1000 ml [Nss] 1,000 ml IV BOLUS
Ondansetron Injectable [Zofran] 4 mg IV NOW STA
Abnormal Lab Results
06/05/25 06/05/25
23:41 23:42
WBC 15.3 H 10^3/uL
(4.8-10.8)
Abs Immat Gran (auto) 0.1 H 10^3/uL
(0-0.05)
Absolute Neuts (auto) 12.1 H 10^3/uL
(1.4-6.5)
Absolute Monos (auto) 0.9 H 10^3/uL
(0.1-0.6)
Neutrophils % 78.7 H %
(42.2-75.2)
Lymphocytes % 12.1 L %
(20.5-51.1)
Glucose 181 H mg/dl
(70-99)
Lactic Acid 3.5 H mmol/L
(0.7-2.0)
AST 43 H U/L
(14-36)
ALT 46 H U/L
(0-35)
Alkaline Phosphatase 149 H U/L
(38-126)
06/05/25 23:41
06/05/25 23:42
Vital Signs
Initial and Last Documented VS:
Initial Vital Signs
Temp Pulse Resp BP Pulse Ox
97.5 F 92 16 118/84 99
06/05/25 22:54 06/05/25 22:54 06/05/25 22:54 06/05/25 22:54 06/05/25 22:54
Last Documented Vital Signs
Temp Pulse Resp BP Pulse Ox
97.5 F 83 23 118/84 99
06/05/25 22:54 06/06/25 00:15 06/06/25 00:15 06/05/25 22:54 06/06/25 01:06
MDM/Problems Addressed
MDM/Problems Addressed:
70-year-old female with history of Crohn's disease with multiple valve surgeries in the past and ostomy presenting for abdominal pain with vomiting. Vital signs on arrival are normal.
On arrival, patient is uncomfortable in appearance with active retching and vomiting. Notes that her symptoms feel very consistent with prior bowel obstructions. She notes about 13-14 surgeries in the past. Patient is high risk for a bowel
obstruction. Plan for laboratory analysis including lactic acid. Will start patient on IV fluids and pain control with Dilaudid and Zofran. Plan for CT abdominal imaging
01:20 -patient's labs show elevated lactate and leukocytosis. Possibly reactive from patient's emesis and retching. CT obtained which does show a small bowel obstruction with transition point near the anastomosis along the ventral abdomen. There
is some trace mesenteric edema, recommended correlation with lactate. On reassessment, patient is much more comfortable after fluids and medications. In discussion with surgery, recommending n.p.o./NG tube/IV fluids and trending lactate. Plan for
hospitalist admission
*Pulse Oximetry
SaO2: 99
Oxygen Mode of Delivery: Room air
Patient hypoxic: no
*Critical Care Note
Total Time (30-74mins, 75-104mins- exclusive of procedures): Not Applicable
ED Attending Note
-
Portions of this chart may have been created with voice recognition software.� Occasional wrong word or��sound alike� substitutions may have occurred due to the inherent limitations of voice recognition software.
Discharge Plan
Departure
Prescriptions:
No Action
alprazolam 0.5 MG tablet
1.5 mg PO HS
meclizine 12.5 MG tablet
12.5 mg PO TIDPRN PRN (Reason: vertigo)
famotidine 20 MG tablet
20 mg PO DAILY
fenofibrate nanocrystallized 145 MG tablet
145 mg PO QPM
pantoprazole 40 MG tablet,delayed release (DR/EC)
40 mg PO HS
escitalopram oxalate 20 MG tablet
20 mg PO DAILY
bupropion HCl 150 MG tablet extended release 24 hr
150 mg PO DAILY
losartan [Cozaar] 100 MG tablet
100 mg PO DAILY
melatonin 10 MG tablet
10 mg PO HS
ropinirole 3 mg Tablet
3 mg PO HS
Rx Instructions:
take with 4mg tab for total of 7mg
metformin 500 mg Tablet Extended Release 24 Hr
500 mg PO QPM
Excedrin Migraine 250-250-65 mg Tablet
2 tab PO BIDPRN PRN (Reason: migraines)
ropinirole 4 mg Tablet
4 mg PO HS
Rx Instructions:
take with 3mg tab for total of 7mg
rizatriptan 10 mg Tablet
10 mg PO
Rx Instructions:
take 1 tab at onset of headache; if no relief may repeat 1 tab after at least 2 hrs; max = 3 tabs/24hr
(DME) blood-glucose meter [Reli[employer] All-In-One Meter] Kit
Qty: 1 0RF
Rx Instructions:
As Directed
Referrals:
Soni Sun PA-C [Family Provider, Family Practice]
Interventions
Interventions:
*Risk Screen - Suicide Last Done: 06/05/25 22:54
*General Assessment Last Done: 06/05/25 22:54
*Neglect/Abuse Screening Last Done: 06/05/25 22:54
*ED- Fall Risk Assessment Last Done: 06/05/25 22:54
*ED COVID-19 Vaccine History Last Done: 06/05/25 22:54
*ED Influenza Vaccine History Last Done: 06/05/25 22:54
HB-Pwcslj-Hcaujgquej Assessment Last Done: 06/06/25 00:49
Discharge Date and Time
Print Language: SETSWANA
[2025-06-06] MEDS: NSS 1000 IV ×2 (01:29→04:22)
[2025-06-06] MEDS: ZOFRAN 4 MG IV ×3 (01:29→20:26)
--- NOTE | 2025-06-06 01:51 | HPS.HSE ---
Family Physician
-
Family Physician: Soni Sun
Chief Complaint
-
Abdominal pain
History of Present Illness
This is a 70-year-old female with past medical history significant for hypertension, anxiety, restless leg syndrome, hyperlipidemia, ggq-oaabisu-kcllnyqby diabetes, GERD, Crohn's colitis status post multiple bowel surgeries in the past status post
ileostomy now coming into the emergency department with complaints of nausea vomiting and abdominal pain that started this evening.
Patient reports episodes are similar to her prior episodes of small bowel obstruction. She reports acute onset of abdominal pain. When she gets the pain she feels that she is having a small bowel obstruction. She started having nausea and then
vomited a large quantities some of it which is self-induced to help relieve her pain. After vomiting the patient is a to come to the emergency department for treatment due to ongoing pain. Patient reports usual amounts from her ostomy but she did
perform an MR prior to onset of her abdominal pain. Last meal was at dinnertime prior to onset of the abdominal pain and she vomited all of her oral intake.
In the Emergency Department she was afebrile, pressure was 118/84 with a pulse of 83 and she was satting 99% on room air. CBC shows a white count 15.3 otherwise unremarkable. Electrolytes BUN and creatinine were in the normal range glucose was
181. Lactic acid was elevated at 3.5. Lipase was negative she has essentially normal LFTs. UA with slightly positive findings including positive nitrites, 1+ leukocyte esterase.
CT of the abdomen and pelvis showing dilated loops of small bowel measuring up to 4.8 cm within the left abdomen concerning for small bowel obstruction with transition point near the anastomosis along the ventral abdomen with trace mesenteric edema.
Medical History
Past Medical History
Past Medical History: Reports HTN, Psychiatric and Other (crohns dz )
Past Surgical History: Reports Other
Additional Past Surgical History:
Appendectomy, Bowel resection (Ileostomy), Other (Multiple surgeries, rectovaginal fistula repair, hernia repair))
Social History
Tobacco: Non-smoker
Alcohol: None
Drug: None
Personal:
Living: With Family
Family History
Family History: Not pertinent
Allergies / Home Medications
Allergies reflects when Allergies were last updated in [facility].
Home Medications with original date entered in [facility]
Allergy/Medication List:
Allergies
Allergy/AdvReac Type Severity Reaction Status Date / Time
adhesive Allergy blisters Verified 02/26/24 02:15
morphine Allergy Hives Verified 02/26/24 02:15
Home Medications
alprazolam 0.5 mg tablet 1.5 mg PO HS Mental Health/Anxiety 11/25/12
cuejhjg-ewerpcjnwrjcb-dryannuo 250 mg-250 mg-65 mg tablet 1 - 2 tab PO BIDPRN PRN headache 07/30/20
famotidine 20 mg tablet 20 mg PO DAILY 07/30/20
fenofibrate nanocrystallized 145 mg tablet 145 mg PO .W/DINNER High cholesterol 07/30/20
meclizine 12.5 mg tablet 12.5 mg PO TIDPRN PRN vertigo 07/30/20
bupropion HCl 150 mg 24 hr tablet, extended release 150 mg PO DAILY Mental Health/Anxiety 08/29/20
escitalopram oxalate 20 mg tablet 20 mg PO DAILY Mental Health/Anxiety 08/29/20
pantoprazole 40 mg tablet,delayed release 40 mg PO HS Gastrointestinal issue 08/29/20
ropinirole 1 mg tablet 7 mg PO HS restless leg syndrome 08/29/20
losartan 100 mg tablet (Cozaar) 100 mg PO DAILY 10/20/21
melatonin 10 mg tablet 10 mg PO HS 10/20/21
phenylephrine HCl 10 mg tablet 10 mg PO Daily PRN Migranes 10/21/21
metformin 500 mg tablet 500 mg PO Daily 02/26/24
Review of Systems
-
Constitutional: Reports No Symptoms
EENT: Reports No Symptoms
Respiratory: Reports No Symptoms
Cardiac: Reports No Symptoms
Abdomen/GI: Reports Abdominal Pain, Nausea and Vomiting
: Reports No Symptoms
Musculoskeletal: Reports No Symptoms
Skin: Reports No Symptoms
Neurological: Reports No Symptoms
Endocrine: Reports No Symptoms
Hematologic/Lymphatic: Reports No Symptoms
Psych: Reports No Symptoms
Physical Exam
Vital Signs
Vital Signs
Temp Pulse Resp BP Pulse Ox
97.5 F 83 23 118/84 99
06/05/25 22:54 06/06/25 00:15 06/06/25 00:15 06/05/25 22:54 06/06/25 01:06
Physical Exam
General: Well Developed, Well Nourished and No Apparent Distress
HEENT: NormoCephalic
Respiratory: Clear
Cardiac: S1/S2
Breast: Deferred by me
GI: Soft, Non Tender, Normal Bowel Sounds (Positive bowel sounds) and Ostomy (She has liquid brown output from the ileostomy)
Rectal: Deferred by Provider
Genito-urinary: Deferred by me
Musculoskeletal: No Edema
Neuro: AO x 3 and No Motor Deficits
Hematologic/Lymphatic: No Lymphadenopathy
Psych: Calm and Intact Judgment/Insight
Laboratory Results
-
06/05/25 23:41
06/05/25 23:42
Laboratory Results
Lactic Acid 3.5 mmol/L (0.7-2.0) H 06/05/25 23:41
Total Bilirubin 1.1 mg/dl (0.2-1.3) 06/05/25 23:42
AST 43 U/L (14-36) H 06/05/25 23:42
ALT 46 U/L (0-35) H 06/05/25 23:42
Alkaline Phosphatase 149 U/L (38-126) H 06/05/25 23:42
Lipase 130 U/L (23-300) 06/05/25 23:42
Data Reviewed
-
CT Scan: Report Reviewed by me
Lab Data: Labs Reviewed by me
Old Records: Reviewed
Impression/Plan
-
IMPRESSION:
70-year-old with past medical history significant for Crohn's colitis status post multiple bowel resections and end ileostomy, complicated by multiple episodes of small bowel obstruction with a last episode in November of this year at an outside hospital
and a prior episode in February of last year which resolved without surgical intervention and now presents to the emergency department with abdominal pain and is found to have small bowel obstruction likely on the basis of anastomotic site stenosis.
She has elevated lactic acid. She is currently nontoxic after episodes of vomiting at home. She is hemodynamically stable. Labs otherwise unremarkable.
PLAN:
Small bowel obstruction -acute small bowel obstruction likely on the basis of anastomosis and not secondary to an acute Crohn's inflammatory process.
� Admit to MedSurg
� N.p.o.
� NG tube placement to low intermittent suction if continued vomiting, patient refuses initial placement.
� Pain control, IV fluids and antiemetics
� IV fluids normal saline for now, trend lactic acid levels
� Surgery consulted and aware will see patient in a.m.
UA is positive but awaiting cell counts
� Urine culture sent
� Holding antibiotics for now
Type 2 diabetes
-Ozx-qbjmmjk-qwfgenlvq diabetes, sliding scale insulin for now, holding metformin
Hypertension�hemodynamically stable
� Hold parameters on losartan and propranolol
Anxiety
� Continue propranolol, as needed lorazepam and bupropion
� Holding escitalopram for now
Restless leg syndrome
� Continue ropinirole
Crohn's -no evidence of active flare at this time, we will hold off on GI consultation
DVT prophylaxis�Lovenox subcu
CODE STATUS�full code
[2025-06-06 01:53] LABS: Urine Character Clear (Clear)
[2025-06-06 02:01] VITALS: BP 153/82
[2025-06-06 02:38] LABS: Urine Squamous Cell 16-20 /LPF (Few)
[2025-06-06 02:39] LABS: Urine Urothelial Cell 0-2 /LPF (FEW)
[2025-06-06] MEDS: DILAUDID 0.5 MG IV ×4 (02:55→20:14)
--- NOTE | 2025-06-06 03:20 | PTCARENOTE ---
Pt received from ED via stretcher accompanied by ED staff and pt's . AAOx3, ambulatory to bed. VSS. Complaints of 8/10 abdominal pain. Given IV Dilaudid in ED 25 minutes prior. Pt nauseous with intermittent dry heaves/vomiting. Pt oriented to
room with call collier within reach.
[2025-06-06 03:21] VITALS: BP 164/96; BMI 34.0
[2025-06-06] MEDS: ATIVAN 0.5 MG IV ×2 (04:55→22:44)
[2025-06-06 07:45] VITALS: BP 148/95
[2025-06-06 08:03] LABS: Glucose - Point of Care 215 mg/dl (70-99)
[2025-06-06] MEDS: COZAAR PO (08:06)
[2025-06-06] MEDS: WELLBUTRIN XL (24 hour extended release) PO (08:06)
[2025-06-06 08:07] LABS: Hematocrit 40.9 % (37.0-47.0); Hemoglobin 13.7 g/dL (12.0-16.0); Mean Corp Hgb Conc. 33.5 g/dL (33.0-37.0); Mean Corpuscular Volume 90.5 fL (81.0-99.0); Platelet Count 187 10^3/uL (130-400); Red Cell Dist. Width 13.5 % (11.5-14.5)
[2025-06-06 08:33] LABS: Blood Urea Nitrogen 13 mg/dl (7-17); Calcium 9.2 mg/dl (8.4-10.2); Carbon Dioxide 29 mmol/L (22-30); Chloride 102 mmol/L (98-107); Estimated Creatinine Clearance 70 ml/min; Glucose 219 mg/dl (70-99); Potassium 4.4 mmol/L (3.5-5.1); Sodium 138 mmol/L (135-145); eGFR > 60.00
[2025-06-06] MEDS: NSS (PRESERVATIVE FREE) 8 ML IV (09:14)
[2025-06-06] MEDS: NOVOLOG FLEXPEN-LOW RESISTANCE 2 UNITS SC (09:14)
[2025-06-06] MEDS: PEPCID 20 MG IV (09:16)
[2025-06-06 09:23] LABS: Hepatitis C Antibody Negative (Negative)
[2025-06-06 10:25] LABS: Glycohemoglobin (HgbA1c) 7.8 % (4.0-5.9)
--- NOTE | 2025-06-06 11:40 | CM ---
Patient sleeping, called spouse. Initial assessment completed. Patient is a 70-year-old female with past medical history significant for hypertension, anxiety, restless leg syndrome, hyperlipidemia, lwn-booqowe-nfvvaycce diabetes, GERD, Crohn's
colitis status post multiple bowel surgeries in the past status post ileostomy now coming into the emergency department with complaints of nausea vomiting and abdominal pain.
Patient resides w/ spouse in a 1st floor condo, 1 step to enter. Patient is independent w/ ambulation, no device required. Independent w/ ADLs and personal care. Has a shower chair and grab bar, no other DME reported. Denies SNF hx, prev known to
[facility] for PT earlier this year.
Address, point of contact and insurance verified
PCP: Soni Sun
Ph[facility]acy: [facility]
Plan: Home, no needs anticipated
[2025-06-06 12:58] LABS: Glucose - Point of Care 176 mg/dl (70-99)
[2025-06-06] MEDS: NOVOLOG FLEXPEN-LOW RESISTANCE 1 UNITS SC ×2 (13:01→17:54)
--- NOTE | 2025-06-06 13:18 | W.PN.HOSP.TC ---
Today's Communication/Plan
-
see plan
Assessment / Plan
Assessment / Plan
Gen: NAD, AAOx3.
Eyes: EOMI, PERRLA, no scleral icterus.
Neck: supple.
CV: RRR, +S1/S2, no m/r/g.
Resp: CTAB, no rales, wheezes, or rhonchi.
Abd: +BS, soft, NT to light palpation, ND
Skin: No rashes.
Neuro: CN 2-12 intact, non-focal.
Psych: Normal mood and affect.
CT A/P: CT findings compatible with small bowel obstruction. There is a small amount of adjacent mesenteric edema. No evidence for free intraperitoneal air. Right lower quadrant colostomy with fat-containing peristomal hernia, stable. Of note,
barium contrast administered for esophagram on June 02, 2025 has reached the colostomy.
Acute small bowel obstruction:
-surgery following, nonoperative management as per Dr. Schrader
-Dr. Schrader consulting GI (underlying crohn's disease)
-NPO/IVFs/pain control
-had NGT, pt pulled it out
-leukocytosis likely reactive
-note, unclear why U/A was sent. Regardless, the sample is contaminated and cannot be used for interpretation. Patient afebrile, without any urinary symptoms, and, as stated above, leukocytosis likely reactive. Acute urinary tract infection is
not on the differential diagnosis at this time.
Other problems:
Obesity due to excess calories: Encourage weight loss, affects all aspects of care
DM2: holding home Metformin, SSI/accuchecks
Essential HTN: cont Losartan/propranolol
Anxiety: cont Wellbutrin/propranolol/Ativan PRN
RLS: Cont ropinirole
FULL/Lovenox
Anticipated Discharge: 24 - 48 hours
Subjective/Interval History
-
Date of Service: June 06, 2025
Pt c/o L-sided abdominal gas pain. Also of note, pt denies any urinary symptoms in the recent past or currently.
Objective Data
-
Labs:
Laboratory Results
06/06/25
07:34
WBC 11.3 H
Hgb 13.7
Hct 40.9
Plt Count 187 D
Sodium 138
Potassium 4.4
Chloride 102
Carbon Dioxide 29
BUN 13
Creatinine 0.7
Glucose 219 H
Calcium 9.2
Vital Signs:
Vital Signs
Temp Pulse Resp BP Pulse Ox
98.9 F 111 16 148/95 96
06/06/25 07:45 06/06/25 07:45 06/06/25 07:45 06/06/25 07:45 06/06/25 09:00
I&O
06/05/25 06/06/25 06/07/25
06:59 06:59 06:59
Intake Total 0 / 0
Output Total 200 / 200
Balance -200 / -200
[2025-06-06] MEDS: LR 1000 IV (13:44)
--- NOTE | 2025-06-06 14:11 | CON.GI ---
Consultation
-
Date/Time Consultation Requested: 06-06-25
Date/Time Consultation Performed: 06-06-25
Requesting Provider: Dr. Reji Schrader
Performing Provider: Dr. Dipika Ruiz
Reason for Consultation: crohn's, sbo
Medical History
Chief Complaint / HPI
Chief Complaint: left sided abd pain, no ostomy output
History of Present Illness:
Debbi Avalos, 68-year-old with medical history significant for Crohn's disease (followed by Dr. Robles at [facility] for gastroenterology and has not been on any medication for this since 1993), recurrent small bowel obstructions (last
SBO 03/05), and 14 prior abdominal surgeries for bowel resections and hernia repairs with prior colostomy came to the hospital with complaints of intractable nausea, some vomiting, abdominal pain and no ostomy output since last evening, 06-05-25.
She was in her usual state of health prior to the abrupt onset of symptoms. She had a barium swallow study last week for evaluation of her known pharyngeal diverticula. Tolerated the procedure well. She developed acute abdominal pain, nausea and
vomiting last night - felt the symptoms to be very similar to her symptoms last year when she was diagnosed with a SBO. Her last meal was dinner last night, all of which she threw up. CT A-P in the ER was notable for findings consistent with SBO,
and blood work notable for leukocytosis and lactate elevation. Patient did not tolerate NG tube placement in the ER due to repeated gagging.
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 Also states that she had a fistula that went down into her groin after having a vein surgery. The patient states that that initial vein surgery is what eventually led to her Crohn's
diagnosis. She eventually ended up with a total colectomy with ileostomy. The only medication she was ever on for Crohn's disease was mesalamine, 6-mercaptopurine and prednisone. She states that this gave her abdominal discomfort and she never went
on medications after this, per her request. She does not recall biologics being discussed by her current GI.
Past Medical History
Past Medical History: HTN and Other (Crohn's disease, depression, anxiety, RLS, AMAYA, iron deficiency anemia, small bowel obstructions, obstructive sleep apnea)
Past Surgical History: Other (Appendectomy, bowel resection (hemicolectomy 1993 subsequent completion colectomy with ileostomy 2017, multiple ex lap's with SBR, hernia repair multiple, laminectomy, bilateral TKR, rectovaginal fistula repair 1993,
vein surgery right leg 1993)
Social History
Tobacco: Non-Smoker
Alcohol: None
Drug: None
Personal:
Living: With Family
Family History
Family History: Reviewed & Not Pertinent and Other (No family history of gastrointestinal malignancy or IBD)
Allergies / Home Medications
Allergy/AdvReac Type Severity Reaction Status Date / Time
adhesive Allergy blisters Verified 06/05/25 22:54
morphine Allergy Hives Verified 06/05/25 22:54
�Medication �Instructions �Recorded
alprazolam 0.5 mg tablet 0.75 mg PO HS Mental Health/Anxiety 11/25/12
famotidine 20 mg tablet 20 mg PO DAILY Gastrointestinal 07/30/20
Issue
meclizine 12.5 mg tablet 12.5 mg PO TIDPRN PRN vertigo 07/30/20
bupropion HCl 150 mg 24 hr tablet, 300 mg PO DAILY Mental 08/29/20
extended release Health/Anxiety
escitalopram oxalate 20 mg tablet 20 mg PO DAILY Mental 08/29/20
Health/Anxiety
pantoprazole 40 mg tablet,delayed 40 mg PO HS Gastrointestinal issue 08/29/20
release
losartan 100 mg tablet (Cozaar) 100 mg PO DAILY Blood Pressure 10/20/21
melatonin 10 mg tablet 10 mg PO HS sleep 10/20/21
lrzmgcf-ocrugswmjyhcz-yfjfwkii 250 2 tab PO BIDPRN PRN migraines 02/26/24
mg-250 mg-65 mg tablet (Excedrin
Migraine)
metformin 500 mg tablet,extended 1,000 mg PO BID diabetes 02/26/24
release 24 hr
blood-glucose meter (ReliOn #1 ea 02/29/24
All-In-One Meter kit)
rizatriptan 10 mg tablet 10 mg PO PRN Migraines 02/29/24
ondansetron HCl 4 mg tablet 4 mg PO Q8H PRN Nausea 06/06/25
propranolol 40 mg tablet 40 mg PO HS 06/06/25
ropinirole 5 mg tablet 5 mg PO HS Neurological Condition 06/06/25
Review of Systems
-
History Source: Patient
All other systems: A 12 pt ROS was Negative except as stated above in HPI
Vital Signs
Temp Pulse Resp BP Pulse Ox
98.9 F 111 16 148/95 96
06/06/25 07:45 06/06/25 07:45 06/06/25 07:45 06/06/25 07:45 06/06/25 09:00
Physical Exam
Exam
General: Other (in mild discomfort)
HEENT: Normocephalic and Anicteric
Respiratory: Clear and Non Labored Respirations
Cardiac: S1/S2 and Regular Rhythm; Negative Murmur or Rub
GI: Soft, Tender and Distended; Negative Organomegaly
Genito-urinary: No Costovertebral Tender
Musculoskeletal: No Clubbing, No Cyanosis and No Edema
Neuro: Awake, Alert, Oriented, No Motor Deficits and Nonfocal/Grossly Intact
Psych: Calm
Results
WBC 11.3 10^3/uL (4.8-10.8) H 06/06/25 07:34
Hgb 13.7 g/dL (12.0-16.0) 06/06/25 07:34
Hct 40.9 % (37.0-47.0) 06/06/25 07:34
MCV 90.5 fL (81.0-99.0) 06/06/25 07:34
Plt Count 187 10^3/uL (130-400) D 06/06/25 07:34
Absolute Neuts (auto) 12.1 10^3/uL (1.4-6.5) H 06/05/25 23:41
Sodium 138 mmol/L (135-145) 06/06/25 07:34
Potassium 4.4 mmol/L (3.5-5.1) 06/06/25 07:34
Chloride 102 mmol/L (98-107) 06/06/25 07:34
Carbon Dioxide 29 mmol/L (22-30) 06/06/25 07:34
BUN 13 mg/dl (7-17) 06/06/25 07:34
Creatinine 0.7 mg/dL (0.6-1.0) 06/06/25 07:34
Calcium 9.2 mg/dl (8.4-10.2) 06/06/25 07:34
Total Bilirubin 1.1 mg/dl (0.2-1.3) 06/05/25 23:42
AST 43 U/L (14-36) H 06/05/25 23:42
ALT 46 U/L (0-35) H 06/05/25 23:42
Alkaline Phosphatase 149 U/L (38-126) H 06/05/25 23:42
Lipase 130 U/L (23-300) 06/05/25 23:42
Hepatitis C Antibody Negative (Negative) 06/06/25 07:34
Diagnostic Image Results:
* 06-05-25: CT findings compatible with small bowel obstruction. There is a small amount of adjacent mesenteric edema. No evidence for free intraperitoneal air. Right lower quadrant colostomy with fat-containing peristomal hernia, stable. Of note,
barium contrast administered for esophagram on June 02, 2025 has reached the colostomy.
Assessment / Plan
-
Debbi Avalos, 68-year-old with medical history significant for Crohn's disease (followed by Dr. Robles at [facility] for gastroenterology and has not been on any medication for this since 1993), recurrent small bowel obstructions (last
SBO 03/05), and 14 prior abdominal surgeries for bowel resections and hernia repairs with prior colostomy came to the hospital with complaints of intractable nausea, some vomiting, abdominal pain and no ostomy output since last evening, 06-05-25.
She was in her usual state of health prior to the abrupt onset of symptoms. She had a barium swallow study last week for evaluation of her known pharyngeal diverticula. Tolerated the procedure well. She developed acute abdominal pain, nausea and
vomiting last night - felt the symptoms to be very similar to her symptoms last year when she was diagnosed with a SBO. Her last meal was dinner last night, all of which she threw up. CT A-P in the ER was notable for findings consistent with SBO,
and blood work notable for leukocytosis and lactate elevation. Patient did not tolerate NG tube placement in the ER due to repeated gagging.
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 Also states that she had a fistula that went down into her groin after having a vein surgery. The patient states that that initial vein surgery is what eventually led to her Crohn's
diagnosis. She eventually ended up with a total colectomy with ileostomy. The only medication she was ever on for Crohn's disease was mesalamine, 6-mercaptopurine and prednisone. She states that this gave her abdominal discomfort and she never went
on medications after this, per her request. She does not recall biologics being discussed by her current GI.
Impression:
* Small bowel obstruction
* History of recurrent small bowel obstructions
* History of severe fistulizing Crohn's disease (initially diagnosed in ) status-post total colectomy with end ileostomy - follows with Dr. Robles at [facility]. Currently not on any maintenance therapy (patient refused treatment in the past)
* 14 prior abdominal surgeries for bowel resections and hernia repairs.
Other medical problems:
* Type II diabetes mellitus
* Primary hypertension
* Restless leg syndrome
* Generalized anxiety disorder
* Obesity due to excess calories
Recommendations:
- Keep NPO with IV hydration.
- Analgesics and antiemetics as needed.
- She did not tolerate NG tube placement in the ER and is hesitant to the idea. Symptoms decently controlled with current medications. Okay to watch for now. Can discuss again if she is more open to the idea should her symptoms persist/get worse.
- With the abrupt onset and a lack of symptoms suggestive of an inflammatory process driving the obstruction, it is unlikely that this obstruction is secondary to a Crohn's flare; check ESR and C-RP.
- SBO likely secondary to adhesions with her history of 14 abdominal surgeries.
- General surgery following.
-
-
Thank you for consultation and allowing me to participate in the patient's care. Please call the [facility] GI physician during the after hours with any questions or concerns.
--- NOTE | 2025-06-06 14:40 | CON.GS ---
Consultation
-
Date/Time Consultation Performed: 06/06/25
Requesting Provider: Robby
Performing Provider: Macrina
Reason for Consultation: SBO
Medical History
-
Chief Complaint: Abd pain
History of Present Illness:
70F with hx severe fistulizing Crohn;s s/p multiple abd operations presents with acute onset abd pain and lack of stoma output a/w nausea/vomiting that began last night. Pain i diffuse and severe, she reports similar to prior episodes. She induced
vomiting but got no relief. Known to the service from prior admissions for similar, most recently 03/05 and prior to that 11/01 and 09/02, all managed non-op. She follows with a [facility] GI and had recent endoscopy and esophagogram. She has been advised
by multiple providers in the past to be on maintenance therapy for Crohns but has refused. NGT attempted in ED unsuccessfully, she alireza only agree to pediatric tube.
Past Medical History
Past Medical History: Other (HTN, Psychiatric and Other (crohns dz )
Past Surgical History: Other (ppendectomy, Bowel resection (Ileostomy), Other (Multiple surgeries, rectovaginal fistula repair, hernia repair)))
Social History
Tobacco: Non-Smoker
Alcohol: None
Drug: None
Personal:
Living: With Family
Family History
Family History: Reviewed & Noncontributory
Allergies / Home Medications
Allergy/AdvReac Type Severity Reaction Status Date / Time
adhesive Allergy blisters Verified 06/05/25 22:54
morphine Allergy Hives Verified 06/05/25 22:54
�Medication �Instructions �Recorded �Confirmed �Type
alprazolam 0.5 mg tablet 0.75 mg PO HS Mental Health/Anxiety 11/25/12 06/06/25 History
famotidine 20 mg tablet 20 mg PO DAILY Gastrointestinal 07/30/20 06/06/25 History
Issue
meclizine 12.5 mg tablet 12.5 mg PO TIDPRN PRN vertigo 07/30/20 06/06/25 History
bupropion HCl 150 mg 24 hr tablet, 300 mg PO DAILY Mental 08/29/20 06/06/25 History
extended release Health/Anxiety
escitalopram oxalate 20 mg tablet 20 mg PO DAILY Mental 08/29/20 06/06/25 History
Health/Anxiety
pantoprazole 40 mg tablet,delayed 40 mg PO HS Gastrointestinal issue 08/29/20 06/06/25 History
release
losartan 100 mg tablet (Cozaar) 100 mg PO DAILY Blood Pressure 10/20/21 06/06/25 History
melatonin 10 mg tablet 10 mg PO HS sleep 10/20/21 06/06/25 History
oyrnobk-mygqxlenmvhej-sxlgvnuo 250 2 tab PO BIDPRN PRN migraines 02/26/24 06/06/25 History
mg-250 mg-65 mg tablet (Excedrin
Migraine)
metformin 500 mg tablet,extended 1,000 mg PO BID diabetes 02/26/24 06/06/25 History
release 24 hr
blood-glucose meter (ReliOn #1 ea 02/29/24 Rx
All-In-One Meter kit)
rizatriptan 10 mg tablet 10 mg PO PRN Migraines 02/29/24 History
ondansetron HCl 4 mg tablet 4 mg PO Q8H PRN Nausea 06/06/25 06/06/25 History
propranolol 40 mg tablet 40 mg PO HS 06/06/25 06/06/25 History
ropinirole 5 mg tablet 5 mg PO HS Neurological Condition 06/06/25 06/06/25 History
Review of Systems
-
A 10 point review of systems was completed, and was negative except as per HPI.
Physical Exam
Vital Signs
Temp Pulse Resp BP Pulse Ox
98.9 F 111 16 148/95 96
06/06/25 07:45 06/06/25 07:45 06/06/25 07:45 06/06/25 07:45 06/06/25 09:00
06/05/25 06/06/2506/07/25
06:59 06:59 06:59
Actual Weight 78.982 kg
Body Mass Index (BMI) 34.0
Lab Results
06/06/25 07:34
06/06/25 07:34
WBC 11.3 10^3/uL (4.8-10.8) H 06/06/25 07:34
Hgb 13.7 g/dL (12.0-16.0) 06/06/25 07:34
Hct 40.9 % (37.0-47.0) 06/06/25 07:34
Plt Count 187 10^3/uL (130-400) D 06/06/25 07:34
Abs Immat Gran (auto) 0.1 10^3/uL (0-0.05) H 06/05/25 23:41
Neutrophils % 78.7 % (42.2-75.2) H 06/05/25 23:41
Physical Exam
General: No Apparent Distress
GI: Soft, Tender (diffuse moderate ttp without guarding) and Distended (moderate without tympany)
Skin: Warm and Dry
Neuro: AO x 3
Psych: Calm
Data Reviewed
-
CT Scan: Image Personally Visualized and interpreted, Report Reviewed by me and Discussed with Patient
Labs: Labs Reviewed by me
Old Records: Reviewed
Assessment / Plan
-
70F with recurrent SBO in setting of Crohn's not on maintanence therapy
AFVSS, pain is not improved, no stoma ooutput since admit
Refuses regular size NGT
WBC improving
CT with dilated sb lops, parastomal hernia not involved in current presentation, likely transition point at distal sb mosis in pelvis, similar to CT from last Feb
Plan:
NPO/IVF
NGT if she will agree
GI consult
PRN pain/nausea meds
DVT ppx
Will follow
[2025-06-06 15:30] VITALS: BP 153/95
[2025-06-06 16:42] LABS: C-Reactive Protein 11.10 mg/L (0.0-10.00)
[2025-06-06 17:53] LABS: Glucose - Point of Care 159 mg/dl (70-99)
[2025-06-06] MEDS: LOVENOX 40 MG SC (17:55)
[2025-06-06] MEDS: INDERAL PO (20:31)
[2025-06-06] MEDS: NSS (PRESERVATIVE FREE) 0.25 ML IV (22:45)
[2025-06-06] MEDS: NSS (PRESERVATIVE FREE) 10 ML IV (22:46)
[2025-06-06] MEDS: PROTONIX IV 40 MG IV (22:48)
[2025-06-06 23:52] LABS: Glucose - Point of Care 137 mg/dl (70-99)
[2025-06-06] MEDS: NOVOLOG FLEXPEN-LOW RESISTANCE SC (23:55)
[2025-06-06 23:56] VITALS: BP 122/53
[2025-06-07] MEDS: LR 1000 IV ×3 (02:18→21:15)
[2025-06-07] MEDS: DILAUDID 0.5 MG IV ×3 (02:23→15:30)
[2025-06-07 06:44] LABS: Glucose - Point of Care 152 mg/dl (70-99)
[2025-06-07 06:55] LABS: Glucose - Point of Care 150 mg/dl (70-99)
[2025-06-07 07:40] VITALS: BP 159/78
[2025-06-07] MEDS: NOVOLOG FLEXPEN-LOW RESISTANCE 1 UNITS SC ×2 (07:49→12:42)
--- NOTE | 2025-06-07 09:10 | W.PN.GS2 ---
Today's Communication / Plan
-
NGT/NPO/IVF
Assessment / Plan
-
70F with recurrent SBO in setting of Crohn's not on maintanence therapy
AFVSS, pain is improved, no stoma output since admit
NGT with 1250 out upon placement, 550cc overnight
WBC improving, no new labs today
CT with dilated sb lops, parastomal hernia not involved in current presentation, likely transition point at distal sb mosis in pelvis, similar to CT from last Feb
Plan:
NPO/IVF
NGT to LIWS
PRN pain/nausea meds
DVT ppx
Will follow
Subjective Data
-
Date of Service: June 07, 2025
99.8F Tmax, denies n/v with NGT to suction, no outut from stoma, pain controlled
Objective Data
-
Intake and Output
06/06/25 06/07/25 06/08/25
06:59 06:59 06:59
Intake Total 0 / 0 1380 / 1380
Output Total 200 / 200 1425 / 1425 550 / 550
Balance -200 / -200 -45 / -45 -550 / -550
Intake:
Oral fluids 0 / 0 180 / 180
IV fluids (Total) 1200 / 1200
Output:
Emesis 200 / 200 200 / 200
Gastrointestinal tube output ( 1225 / 1225 550 / 550
Total)
[place] Sump 1225 / 1225 550 / 550
Other:
Number of approximated MODERATE 2 2
amounts of urine
Vital Signs
Temp Pulse Resp BP Pulse Ox
98.1 F 98 18 122/53 91
06/06/25 23:56 06/06/25 23:56 06/06/25 23:56 06/06/25 23:56 06/06/25 23:56
Lab Results
06/06/25 07:34
06/06/25 07:34
Calcium 9.2 mg/dl (8.4-10.2) 06/06/25 07:34
Total Bilirubin 1.1 mg/dl (0.2-1.3) 06/05/25 23:42
AST 43 U/L (14-36) H 06/05/25 23:42
ALT 46 U/L (0-35) H 06/05/25 23:42
Alkaline Phosphatase 149 U/L (38-126) H 06/05/25 23:42
Total Protein 7.7 g/dl (6.3-8.2) 06/05/25 23:42
Albumin 4.8 g/dl (3.5-5.0) 06/05/25 23:42
Physical Exam
-
Gen: NAD
Abd: soft, distended, mildly ttp mostly to left hemiabdomen, stoma PPV with scant brown stool (unchanged from yesterday)
Patient has a farah catheter: No
Patient has a central line: No
--- NOTE | 2025-06-07 09:28 | W.PN.HOSP.TC ---
Today's Communication/Plan
-
see plan
Assessment / Plan
Assessment / Plan
Gen: NAD, AAOx3.
Eyes: EOMI, PERRLA, no scleral icterus.
Neck: supple.
CV: remains RRR, +S1/S2, no m/r/g.
Resp: CTAB, no rales, wheezes, or rhonchi.
Abd: BS obscured by NGT to suction, soft, L-sided TTP, ND
Skin: No rashes.
Neuro: remains CN 2-12 intact, non-focal.
Psych: Normal mood and affect.
CT A/P: CT findings compatible with small bowel obstruction. There is a small amount of adjacent mesenteric edema. No evidence for free intraperitoneal air. Right lower quadrant colostomy with fat-containing peristomal hernia, stable. Of note,
barium contrast administered for esophagram on June 02, 2025 has reached the colostomy.
Acute small bowel obstruction:
-surgery following, nonoperative management as per Dr. Schrader
-Dr. Schrader consulting GI (underlying crohn's disease)
-NPO/IVFs/pain control
-cont NGT to suction
-leukocytosis likely reactive
-note, unclear why U/A was sent. Regardless, the sample is contaminated and cannot be used for interpretation. Patient afebrile, without any urinary symptoms, and, as stated above, leukocytosis likely reactive. Acute urinary tract infection is
not on the differential diagnosis at this time.
Headache:
-ODT Rizatriptan
Other problems:
Obesity due to excess calories: Encourage weight loss, affects all aspects of care
DM2: holding home Metformin, SSI/accuchecks
Essential HTN: resume Losartan/propranolol once taking PO
Anxiety: resume Wellbutrin/propranolol/Ativan PRN
RLS: resume ropinirole once taking PO
FULL/Lovenox
Anticipated Discharge: > 48 hours
Subjective/Interval History
-
Date of Service: June 07, 2025
Pt reports L-sided gas pain and h/a.
Objective Data
-
Vital Signs:
Vital Signs
Temp Pulse Resp BP Pulse Ox
98.1 F 98 18 122/53 91
06/06/25 23:56 06/06/25 23:56 06/06/25 23:56 06/06/25 23:56 06/06/25 23:56
I&O
06/06/25 06/07/25 06/08/25
06:59 06:59 06:59
Intake Total 0 / 0 1380 / 1380
Output Total 200 / 200 1425 / 1425 550 / 550
Balance -200 / -200 -45 / -45 -550 / -550
--- NOTE | 2025-06-07 09:55 | W.PN.GI.CBS2 ---
Today's Communication / Plan
-
Continue NG tube to low continueintermittent suction
IV fluids
n.p.o.
Assessment / Plan
-
Debbi Avalos, 68-year-old with medical history significant for Crohn's disease (followed by Dr. Robles at [facility] for gastroenterology and has not been on any medication for this since 1993), recurrent small bowel obstructions (last
SBO 03/05), and 14 prior abdominal surgeries for bowel resections and hernia repairs with prior colostomy came to the hospital with complaints of intractable nausea, some vomiting, abdominal pain and no ostomy output since last evening, 06-05-25.
She was in her usual state of health prior to the abrupt onset of symptoms. She had a barium swallow study last week for evaluation of her known pharyngeal diverticula. Tolerated the procedure well. She developed acute abdominal pain, nausea and
vomiting last night - felt the symptoms to be very similar to her symptoms last year when she was diagnosed with a SBO. Her last meal was dinner last night, all of which she threw up. CT A-P in the ER was notable for findings consistent with SBO,
and blood work notable for leukocytosis and lactate elevation. Patient did not tolerate NG tube placement in the ER due to repeated gagging.
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 Also states that she had a fistula that went down into her groin after having a vein surgery. The patient states that that initial vein surgery is what eventually led to her Crohn's
diagnosis. She eventually ended up with a total colectomy with ileostomy. The only medication she was ever on for Crohn's disease was mesalamine, 6-mercaptopurine and prednisone. She states that this gave her abdominal discomfort and she never went
on medications after this, per her request. She does not recall biologics being discussed by her current GI.
Impression:
* Recurrent small bowel obstruction most likely related to adhesions from prior surgeries
* History of recurrent small bowel obstructions
* History of severe fistulizing Crohn's disease (initially diagnosed in ) status-post total colectomy with end ileostomy - follows with Dr. Robles at [facility]. Currently not on any maintenance therapy (patient refused treatment in the past)
* 14 prior abdominal surgeries for bowel resections and hernia repairs.
Other medical problems:
* Type II diabetes mellitus
* Primary hypertension
* Restless leg syndrome
* Generalized anxiety disorder
* Obesity due to excess calories
Recommendations:
Recurrent small bowel obstruction most likely related to adhesions from her prior multiple abdominal surgeries.
She has very minimal output in her ileostomy
She agreed for NG tube placement and had it placed yesterday with Dr. Schrader and had 1250 after initial placement and another 550 cc drained overnight, continue to low intermittent suction
Continue n.p.o. and IV fluids
Continue PPI
Discussed with Dr. Robles yesterday her OP GI. She does not have any active Crohn's disease at this time and does not need Biologics and no reported anastomotic stricture either on prior imaging
she does have symptoms of intermittent dysphagia and was noted to have pharyngeal diverticulum on recent endoscopy and barium swallow and he is referring her to ENT at [place]
Surgery on board
Hopefully will resolve with bowel rest and NG tube
Obstruction series from today shows no free air and slightly less distended bowel loops but still has residual contrast in the small bowel loops in the right lower quadrant
Subjective
Subjective
Date of Service: June 07, 2025
Patient did agree eventually for an NG tube placement and was placed by Dr. Schrader and had significant NG tube output initially about 1250 after placement and 550 cc overnight, pain did improve after NG tube placement. Very small amount of liquid
stool from yesterday seen in the ileostomy bag. Obstruction series 06/06 personally reviewed by me shows residual contrast in the small bowel loops in the right lower quadrant and a few air-fluid levels in the left upper quadrant no free air,
distention is improving
Objective
Data Reviewed
Laboratory Data:
Laboratory Results
Total Bilirubin 1.1 mg/dl (0.2-1.3) 06/05/25 23:42
AST 43 U/L (14-36) H 06/05/25 23:42
ALT 46 U/L (0-35) H 06/05/25 23:42
Alkaline Phosphatase 149 U/L (38-126) H 06/05/25 23:42
Lipase 130 U/L (23-300) 06/05/25 23:42
Laboratory Tests
06/06/25
07:34
ESR 13
C-Reactive Protein 11.10 H
06/06 Obstruction series
IMPRESSION:
Follow-up evaluation of small bowel obstruction seen on recent CT limited as a result of paucity of intestinal bowel gas. No free air.
Residual oral contrast seen within loops of small nondilated small bowel in the right lower quadrant of the abdomen.
06/02/2025 Barium swallow
IMPRESSION:
Fluoroscopic findings suggesting a small posterior pharyngeal diverticulum as well as a feline appearance in the distal esophagus.
Vital Signs and I&O:
Vital Signs
Temp Pulse Resp BP Pulse Ox
98.1 F 98 18 122/53 91
06/06/25 23:56 06/06/25 23:56 06/06/25 23:56 06/06/25 23:56 06/06/25 23:56
I&O
06/06/25 06/07/25 06/08/25
06:59 06:59 06:59
Intake Total 0 / 0 1380 / 1380
Output Total 200 / 200 1425 / 1425 550 / 550
Balance -200 / -200 -45 / -45 -550 / -550
Physical Exam
Physical Exam
Cardiology: Normal Sinus Rhythm
Pulmonary: Clear
GI: Soft and Distended ( less distended than yesterday, tender around the ostomy and also lower abdomen, very hypoactive bowel sounds, )
[2025-06-07 09:59] LABS: Hematocrit 38.6 % (37.0-47.0); Hemoglobin 12.8 g/dL (12.0-16.0); Mean Corp Hgb Conc. 33.2 g/dL (33.0-37.0); Mean Corpuscular Volume 89.8 fL (81.0-99.0); Platelet Count 198 10^3/uL (130-400); Red Cell Dist. Width 14.0 % (11.5-14.5)
[2025-06-07] MEDS: WELLBUTRIN XL (24 hour extended release) PO (10:02)
[2025-06-07] MEDS: COZAAR PO (10:02)
[2025-06-07] MEDS: NSS (PRESERVATIVE FREE) 8 ML IV (10:03)
[2025-06-07] MEDS: PEPCID 20 MG IV (10:03)
[2025-06-07 10:45] LABS: Blood Urea Nitrogen 10 mg/dl (7-17); Calcium 8.6 mg/dl (8.4-10.2); Carbon Dioxide 29 mmol/L (22-30); Chloride 102 mmol/L (98-107); Estimated Creatinine Clearance 70 ml/min; Glucose 173 mg/dl (70-99); Potassium 3.6 mmol/L (3.5-5.1); Sodium 137 mmol/L (135-145); eGFR > 60.00
[2025-06-07] MEDS: MAXALT MLT (ORALLY DISINTEGRATING) 10 MG PO (11:03)
[2025-06-07 12:06] LABS: Glucose - Point of Care 180 mg/dl (70-99)
--- NOTE | 2025-06-07 14:18 | PTCARENOTE ---
patient ambulated with assistance and rolling walker, upon returning to bed patient with dyspnea, POX ambulating on room air 80%, assisted to chair and POX increased to 95% after 15 seconds and dyspnea improved. plan of care ongoing.
[2025-06-07 15:35] VITALS: BP 168/80
[2025-06-07 17:53] LABS: Glucose - Point of Care 136 mg/dl (70-99)
[2025-06-07] MEDS: LOVENOX 40 MG SC (17:54)
[2025-06-07] MEDS: NOVOLOG FLEXPEN-LOW RESISTANCE SC (17:54)
[2025-06-07] MEDS: TYLENOL 650 MG PO (19:13)
[2025-06-07] MEDS: NSS (PRESERVATIVE FREE) 10 ML IV (21:20)
[2025-06-07] MEDS: PROTONIX IV 40 MG IV (21:21)
[2025-06-07] MEDS: INDERAL 20 MG PO (21:27)
--- NOTE | 2025-06-07 22:17 | W.PN.UPDATE ---
Update Note
Progress Note Update
Confirmed home dose of Ropinirole is 5 mg PO at HS. Order updated for Ropinirole 5 mg PO HS.
[2025-06-07 23:00] VITALS: BP 138/70
[2025-06-07] MEDS: REQUIP 5 MG PO (23:36)
[2025-06-07] MEDS: XANAX 0.75 MG PO (23:37)
[2025-06-08] MEDS: NOVOLOG FLEXPEN-LOW RESISTANCE SC ×3 (00:39→06:11)
[2025-06-08 02:47] LABS: Glucose - Point of Care 152 mg/dl (70-99)
[2025-06-08] MEDS: FLUSH (NSS) 1 FLUSH IV (02:57)
[2025-06-08] MEDS: ZOFRAN 4 MG IV ×2 (02:57→09:18)
[2025-06-08 06:10] LABS: Glucose - Point of Care 136 mg/dl (70-99)
--- NOTE | 2025-06-08 06:21 | PTCARENOTE ---
Addendum entered by Adilia Romo RN 06/08/25 06:24:
Pt continued to be monitored over night. Pt forgetful at times & trying to get up constantly, confused at times,NPO with ice chips & IV fluids continued as ordered.APPRAISER TIMBER was made aware of pt confusion.Safety measures in place.Plan of care continued.
Original Note:
Pt aaox3 able to make her needs known. Pt very anxious at night,asking for her xanax 0.75mg and her requip 5mg as per pt which is her new dose.APPRAISER TIMBER made aware of it.Pt was placed on bed alarm for safety & fall precautions maintained.
[2025-06-08 06:59] LABS: Glucose - Point of Care 139 mg/dl (70-99)
[2025-06-08 08:03] VITALS: BP 136/73
--- NOTE | 2025-06-08 08:05 | W.PN.HOSP.TC ---
Today's Communication/Plan
-
see plan
Assessment / Plan
Assessment / Plan
Gen: NAD, AAOx3.
Eyes: EOMI, PERRLA, no scleral icterus.
Neck: supple.
CV: Continues to remain RRR, +S1/S2, no m/r/g.
Resp: CTAB, no rales, wheezes, or rhonchi.
Abd: +BS, soft, nontender to light palpation, ND
Skin: No rashes.
Neuro: Continues to remain CN 2-12 intact, non-focal.
Psych: Normal mood and affect.
CT A/P: CT findings compatible with small bowel obstruction. There is a small amount of adjacent mesenteric edema. No evidence for free intraperitoneal air. Right lower quadrant colostomy with fat-containing peristomal hernia, stable. Of note,
barium contrast administered for esophagram on June 02, 2025 has reached the colostomy.
Acute small bowel obstruction:
-surgery following, nonoperative management as per Dr. Schrader
-Dr. Schrader consulting GI (underlying crohn's disease)
-was NPO/IVFs and had NGT to suction. NGT removed 06/07.
-as per discussion with Dr. Schrader, advance to clears and if the patient tolerates clears she can go home and advance her diet at home.
-leukocytosis likely reactive
-note, unclear why U/A was sent. Regardless, the sample is contaminated and cannot be used for interpretation. Patient afebrile, without any urinary symptoms, and, as stated above, leukocytosis likely reactive. Acute urinary tract infection is
not on the differential diagnosis at this time.
Headache:
-ODT Rizatriptan
Other problems:
Obesity due to excess calories: Encourage weight loss, affects all aspects of care
DM2: holding home Metformin, SSI/accuchecks
Essential HTN: resume Losartan/propranolol once taking PO
Anxiety: resume Wellbutrin/propranolol/Ativan PRN
RLS: resume ropinirole once taking PO
FULL/Lovenox
Anticipated Discharge: Within 24 hours
Subjective/Interval History
-
Date of Service: June 08, 2025
Patient states she has abdominal pain 'only if you touch it.' Patient has had stool in her ostomy as well as flatus.
Objective Data
-
Labs:
Laboratory Results
06/08/25
07:16
WBC Pending
Hgb Pending
Hct Pending
Plt Count Pending
Sodium Pending
Potassium Pending
Chloride Pending
Carbon Dioxide Pending
BUN Pending
Creatinine Pending
Glucose Pending
Calcium Pending
Vital Signs:
Vital Signs
Temp Pulse Resp BP Pulse Ox
98.5 F 77 18 136/73 95
06/08/25 08:03 06/08/25 08:03 06/08/25 08:03 06/08/25 08:03 06/08/25 08:03
I&O
06/07/25 06/08/25 06/09/25
06:59 06:59 06:59
Intake Total 1380 / 1380 1200 / 1200
Output Total 1425 / 1425 880 / 880
Balance -45 / -45 320 / 320
[2025-06-08 08:29] LABS: Hematocrit 33.8 % (37.0-47.0); Hemoglobin 11.3 g/dL (12.0-16.0); Mean Corp Hgb Conc. 33.4 g/dL (33.0-37.0); Mean Corpuscular Volume 89.9 fL (81.0-99.0); Platelet Count 165 10^3/uL (130-400); Red Cell Dist. Width 13.2 % (11.5-14.5)
[2025-06-08 09:07] LABS: Blood Urea Nitrogen 4 mg/dl (7-17); Calcium 8.5 mg/dl (8.4-10.2); Carbon Dioxide 32 mmol/L (22-30); Chloride 100 mmol/L (98-107); Estimated Creatinine Clearance 81 ml/min; Glucose 136 mg/dl (70-99); Potassium 3.0 mmol/L (3.5-5.1); Sodium 135 mmol/L (135-145); eGFR > 60.00
[2025-06-08] MEDS: WELLBUTRIN XL (24 hour extended release) 150 MG PO (09:18)
[2025-06-08] MEDS: COZAAR 100 MG PO (09:19)
[2025-06-08] MEDS: NSS (PRESERVATIVE FREE) 8 ML IV (09:19)
[2025-06-08] MEDS: PEPCID 20 MG IV (09:19)
[2025-06-08] MEDS: LEXAPRO 20 MG PO (09:21)
[2025-06-08] MEDS: GLUCOPHAGE XR EXTENDED RELEASE 1000 MG PO ×2 (09:21→19:56)
[2025-06-08] MEDS: TYLENOL 650 MG PO (09:30)
--- NOTE | 2025-06-08 09:51 | W.PN.GS2 ---
Today's Communication / Plan
-
CLD
DC
Assessment / Plan
-
70F with recurrent SBO in setting of Crohn's not on maintenance therapy, resolving
AFVSS, pain is improved, gas and stool via stoma
CT with dilated sb lops, parastomal hernia not involved in current presentation, likely transition point at distal sb mosis in pelvis, similar to CT from last Feb
Plan:
Adv to CLD
D/w pt gradual diet advancement, she has been through this many times and is comfortable advancing diet at home
DVT ppx
OK for DC home after tolerating clears
Subjective Data
-
Date of Service: June 08, 2025
AFVSS, passing flatus and stool via stoma, denies n/v since NGT dc'ed
Objective Data
-
Intake and Output
06/07/25 06/08/25 06/09/25
06:59 06:59 06:59
Intake Total 1380 / 1380 1200 / 1200
Output Total 1425 / 1425 880 / 880
Balance -45 / -45 320 / 320
Intake:
Oral fluids 180 / 180
IV fluids (Total) 1200 / 1200 1200 / 1200
Output:
Emesis 200 / 200
Gastrointestinal tube output ( 1225 / 1225 880 / 880
Total)
[place] Sump 1225 / 1225 880 / 880
Other:
Number of approximated MODERATE 2 3 1
amounts of urine
Vital Signs
Temp Pulse Resp BP Pulse Ox
98.5 F 77 18 136/73 95
06/08/25 08:03 06/08/25 08:03 06/08/25 08:03 06/08/25 09:19 06/08/25 08:03
Lab Results
06/08/25 07:16
06/08/25 07:16
Calcium 8.5 mg/dl (8.4-10.2) 06/08/25 07:16
Total Bilirubin 1.1 mg/dl (0.2-1.3) 06/05/25 23:42
AST 43 U/L (14-36) H 06/05/25 23:42
ALT 46 U/L (0-35) H 06/05/25 23:42
Alkaline Phosphatase 149 U/L (38-126) H 06/05/25 23:42
Total Protein 7.7 g/dl (6.3-8.2) 06/05/25 23:42
Albumin 4.8 g/dl (3.5-5.0) 06/05/25 23:42
Physical Exam
-
Gen: NAd
Abd: soft, mild distention, mild ttp to llq
Patient has a farah catheter: No
Patient has a central line: No
[2025-06-08 11:50] LABS: Magnesium 1.6 mg/dl (1.6-2.3)
[2025-06-08 11:56] LABS: Glucose - Point of Care 175 mg/dl (70-99)
--- NOTE | 2025-06-08 11:57 | W.PN.GI.CBS2 ---
Today's Communication / Plan
-
NGT out and tolerating clears-- SBO resolved
Discussed with Dr Robles, does not have active Crohn's or anastomotic stricture and this episdoe felt to be mechanical SBO due to adhesions rather than Crohn's flare
Advance diet as tolerated
Will sign off. Please call back if needed
Assessment / Plan
-
Debbi Avalos, 68-year-old with medical history significant for Crohn's disease (followed by Dr. Robles at [facility] for gastroenterology and has not been on any medication for this since 1993), recurrent small bowel obstructions (last
SBO 03/05), and 14 prior abdominal surgeries for bowel resections and hernia repairs with prior colostomy came to the hospital with complaints of intractable nausea, some vomiting, abdominal pain and no ostomy output since last evening, 06-05-25.
She was in her usual state of health prior to the abrupt onset of symptoms. She had a barium swallow study last week for evaluation of her known pharyngeal diverticula. Tolerated the procedure well. She developed acute abdominal pain, nausea and
vomiting last night - felt the symptoms to be very similar to her symptoms last year when she was diagnosed with a SBO. Her last meal was dinner last night, all of which she threw up. CT A-P in the ER was notable for findings consistent with SBO,
and blood work notable for leukocytosis and lactate elevation. Patient did not tolerate NG tube placement in the ER due to repeated gagging.
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 Also states that she had a fistula that went down into her groin after having a vein surgery. The patient states that that initial vein surgery is what eventually led to her Crohn's
diagnosis. She eventually ended up with a total colectomy with ileostomy. The only medication she was ever on for Crohn's disease was mesalamine, 6-mercaptopurine and prednisone. She states that this gave her abdominal discomfort and she never went
on medications after this, per her request. She does not recall biologics being discussed by her current GI.
Impression:
* Recurrent small bowel obstruction most likely related to adhesions from prior surgeries
* History of recurrent small bowel obstructions
* History of severe fistulizing Crohn's disease (initially diagnosed in ) status-post total colectomy with end ileostomy - follows with Dr. Robles at [facility]. Currently not on any maintenance therapy (patient refused treatment in the past)
* 14 prior abdominal surgeries for bowel resections and hernia repairs.
Other medical problems:
* Type II diabetes mellitus
* Primary hypertension
* Restless leg syndrome
* Generalized anxiety disorder
* Obesity due to excess calories
Subjective
Subjective
Date of Service: June 08, 2025
NGT out. Tolerating clears.
Objective
Data Reviewed
Laboratory Data:
Laboratory Results
06/08/25 07:16
06/08/25 07:16
Laboratory Results
Magnesium 1.6 mg/dl (1.6-2.3) 06/08/25 07:16
Total Bilirubin 1.1 mg/dl (0.2-1.3) 06/05/25 23:42
AST 43 U/L (14-36) H 06/05/25 23:42
ALT 46 U/L (0-35) H 06/05/25 23:42
Alkaline Phosphatase 149 U/L (38-126) H 06/05/25 23:42
Lipase 130 U/L (23-300) 06/05/25 23:42
Vital Signs and I&O:
Vital Signs
Temp Pulse Resp BP Pulse Ox
98.5 F 77 18 136/73 95
06/08/25 08:03 06/08/25 08:03 06/08/25 08:03 06/08/25 09:19 06/08/25 08:03
I&O
06/07/25 06/08/25 06/09/25
06:59 06:59 06:59
Intake Total 1380 / 1380 1200 / 1200
Output Total 1425 / 1425 880 / 880
Balance -45 / -45 320 / 320
Physical Exam
Physical Exam
GI: Soft, Non Distended and Non Tender
[2025-06-08] MEDS: LR IV (12:09)
[2025-06-08] MEDS: KCL 40 MEQ PO (12:11)
[2025-06-08] MEDS: KCL 270 MEQ IV (12:11)
[2025-06-08] MEDS: NOVOLOG FLEXPEN-LOW RESISTANCE 1 UNITS SC (12:12)
[2025-06-08 16:06] LABS: Glucose - Point of Care 128 mg/dl (70-99)
[2025-06-08 16:13] VITALS: BP 134/83
[2025-06-08] MEDS: LOVENOX 40 MG SC (17:34)
[2025-06-08 21:02] LABS: Glucose - Point of Care 210 mg/dl (70-99)
[2025-06-08] MEDS: XANAX 0.75 MG PO (22:15)
[2025-06-08] MEDS: PROTONIX 40 MG PO (22:34)
[2025-06-08] MEDS: INDERAL 40 MG PO (22:36)
[2025-06-08 23:00] VITALS: BP 145/76
[2025-06-08] MEDS: REQUIP PO (23:02)
[2025-06-09 07:42] VITALS: BP 161/85
[2025-06-09 07:55] LABS: Glucose - Point of Care 137 mg/dl (70-99)
[2025-06-09 08:24] LABS: Hematocrit 39.7 % (37.0-47.0); Hemoglobin 13.2 g/dL (12.0-16.0); Mean Corp Hgb Conc. 33.2 g/dL (33.0-37.0); Mean Corpuscular Volume 89.0 fL (81.0-99.0); Platelet Count 250 10^3/uL (130-400); Red Cell Dist. Width 13.2 % (11.5-14.5)
[2025-06-09 08:48] LABS: Blood Urea Nitrogen 3 mg/dl (7-17); Calcium 9.6 mg/dl (8.4-10.2); Carbon Dioxide 32 mmol/L (22-30); Chloride 103 mmol/L (98-107); Estimated Creatinine Clearance 70 ml/min; Glucose 134 mg/dl (70-99); Potassium 3.9 mmol/L (3.5-5.1); Sodium 140 mmol/L (135-145); eGFR > 60.00
[2025-06-09] MEDS: GLUCOPHAGE XR EXTENDED RELEASE 1000 MG PO (09:10)
[2025-06-09] MEDS: WELLBUTRIN XL (24 hour extended release) 150 MG PO (09:10)
[2025-06-09] MEDS: PEPCID 20 MG IV (09:11)
[2025-06-09] MEDS: NSS (PRESERVATIVE FREE) 8 ML IV (09:11)
[2025-06-09] MEDS: COZAAR 100 MG PO (09:11)
[2025-06-09] MEDS: LEXAPRO 20 MG PO (09:11)
--- NOTE | 2025-06-09 10:15 | W.PN.GS2 ---
Addendum entered and electronically signed by Reji Schrader MD 06/09/25 10:53:
I saw and examined the patient.
The Supervisor Nurse's note was reviewed and I agree with the note.
Comment: Much improved. Pain resolved. denies n/v. E[place] cld. Stoma with gas and stool output. NT ND on exam. OK for LRD. Dietary education provided. DC when tolerating LRD
Original Note:
Today's Communication / Plan
-
advance diet
Assessment / Plan
-
70F with recurrent SBO in setting of Crohn's not on maintenance therapy, resolving
AFVSS, pain is improved, gas and stool via stoma
CT with dilated sb lops, parastomal hernia not involved in current presentation, likely transition point at distal sb anastomosis in pelvis, similar to CT from last Feb
Resolving with improvement in pain/distention and stoma productive of stool/flatus
Tolerating clears
Plan:
Adv to low residue ada diet
Medical management as per primary team
OK for DC home once tolerating diet from surgical standpoint
Subjective Data
-
Date of Service: June 09, 2025
Pt seen and examined at bedside with Dr. Schrader. Doing well overall. She denies n/v. She notes pain has much improved. Continues to pass flatus/stool via stoma.
Objective Data
-
Intake and Output
06/08/25 06/09/25 06/10/25
06:59 06:59 06:59
Intake Total 1200 / 1200 1510 / 1510
Output Total 880 / 880
Balance 320 / 320 1510 / 1510
Intake:
Oral fluids 960 / 960
IV fluids (Total) 1200 / 1200 550 / 550
Output:
Gastrointestinal tube output (
Total)
[place] Sump 880 / 880
Other:
Number of approximated MODERATE 3 3
amounts of urine
Number of approximated LARGE 5
amounts of urine
Vital Signs
Temp Pulse Resp BP Pulse Ox
98.7 F 72 16 129/68 95
06/09/25 07:42 06/09/25 09:11 06/09/25 07:42 06/09/25 09:11 06/09/25 07:42
Lab Results
06/09/25 08:01
06/09/25 08:01
Calcium 9.6 mg/dl (8.4-10.2) 06/09/25 08:01
Magnesium 1.6 mg/dl (1.6-2.3) 06/08/25 07:16
Total Bilirubin 1.1 mg/dl (0.2-1.3) 06/05/25 23:42
AST 43 U/L (14-36) H 06/05/25 23:42
ALT 46 U/L (0-35) H 06/05/25 23:42
Alkaline Phosphatase 149 U/L (38-126) H 06/05/25 23:42
Total Protein 7.7 g/dl (6.3-8.2) 06/05/25 23:42
Albumin 4.8 g/dl (3.5-5.0) 06/05/25 23:42
Physical Exam
-
NAD
ABD soft, minimal distention, NT
Stoma pink/viable and productive of flatus and loose stool
--- NOTE | 2025-06-09 10:28 | W.PN.HOSP.TC ---
Today's Communication/Plan
-
d/c
Assessment / Plan
Assessment / Plan
Gen: NAD, AAOx3.
Eyes: EOMI, PERRLA, no scleral icterus.
Neck: supple.
CV: RRR, +S1/S2, no m/r/g.
Resp: CTAB anteriorly, no rales, wheezes, or rhonchi.
Abd: remains +BS, soft, nontender to light palpation, ND
Skin: No rashes.
Neuro: CN 2-12 intact, non-focal.
Psych: Normal mood and affect.
CT A/P: CT findings compatible with small bowel obstruction. There is a small amount of adjacent mesenteric edema. No evidence for free intraperitoneal air. Right lower quadrant colostomy with fat-containing peristomal hernia, stable. Of note,
barium contrast administered for esophagram on June 02, 2025 has reached the colostomy.
Acute small bowel obstruction:
-surgery following, nonoperative management as per Dr. Schrader
-Dr. Schrader consulting GI (underlying crohn's disease)
-was NPO/IVFs and had NGT to suction. NGT removed 06/07.
-was advanced to clears, now advanced to LR diet
-leukocytosis likely reactive
-note, unclear why U/A was sent. Regardless, the sample is contaminated and cannot be used for interpretation. Patient afebrile, without any urinary symptoms, and, as stated above, leukocytosis likely reactive. Acute urinary tract infection is
not on the differential diagnosis at this time.
-case discussed with Dr. Schrader and he has cleared the pt for discharge
Headache:
-ODT Rizatriptan
Other problems:
Obesity due to excess calories: Encourage weight loss, affects all aspects of care
DM2: resume home Metformin, SSI/accuchecks
Essential HTN: cont Losartan/propranolol
Anxiety: cont Wellbutrin/propranolol/Ativan PRN
RLS: cont ropinirole
FULL/Lovenox
Total time spent on d/c = 31 min. This included today's physical exam, progress note, review of laboratory and diagnostic data, preparation of discharge documents and prescriptions, and discussions about the pt's hospital course and discharge plan
with the patient and other medical videographer involved in the patient's care.
Anticipated Discharge: Today
Subjective/Interval History
-
Date of Service: June 09, 2025
Tolerated LR breakfast, no new complaints.
Objective Data
-
Labs:
Laboratory Results
06/09/25
08:01
WBC 6.4
Hgb 13.2
Hct 39.7
Plt Count 250 D
Sodium 140
Potassium 3.9 D
Chloride 103
Carbon Dioxide 32 H
BUN 3 L
Creatinine 0.7
Glucose 134 H
Calcium 9.6
Vital Signs:
Vital Signs
Temp Pulse Resp BP Pulse Ox
98.7 F 72 16 129/68 95
06/09/25 07:42 06/09/25 09:11 06/09/25 07:42 06/09/25 09:11 06/09/25 07:42
I&O
06/08/25 06/09/25 06/10/25
06:59 06:59 06:59
Intake Total 1200 / 1200 1510 / 1510
Output Total 880 / 880
Balance 320 / 320 1510 / 1510
--- NOTE | 2025-06-09 11:00 | CM ---
IMM given. Met with pt bedside . States she is ready for discharge. will drive pt home. Pickup time: 3:00 pm
Plan: DC to home, no needs
[2025-06-09 12:39] LABS: Glucose - Point of Care 138 mg/dl (70-99)
[2025-06-09 14:38] VITALS: BP 138/71
--- NOTE | 2025-06-09 15:34 | W.DCSUMMARY ---
Discharge Summary
Discharge Data
Date of Admission: 06/06/25
Date of Discharge: 06/09/25
-
Pending Results: No
Hospital Course
Primary diagnoses:
Acute small bowel obstruction
Secondary diagnoses:
Crohn's disease
Migraine headaches
Obesity due to excess calories
Type 2 diabetes mellitus
Essential hypertension
Anxiety
Restless leg syndrome
Reactive leukocytosis
Consultants:
General surgery
Gastroenterology
Imaging:
CT A/P 06/05: CT findings compatible with small bowel obstruction. There is a small amount of adjacent mesenteric edema. No evidence for free intraperitoneal air. Right lower quadrant colostomy with fat-containing peristomal hernia, stable. Of note,
barium contrast administered for esophagram on June 02, 2025 has reached the colostomy.
OBST series 06/07: Follow-up evaluation of small bowel obstruction seen on recent CT limited as a result of paucity of intestinal bowel gas. No free air. Residual oral contrast seen within loops of small nondilated small bowel in the right lower
quadrant of the abdomen.
Hospital course: 70-year-old female who presented with a chief complaint of abdominal pain as outlined in the H&P done on admission. Patient was seen by general surgery and nonoperative management was recommended. The patient was n.p.o. and
supported with IV fluids. She had an NG tube to suction. The NG tube was removed on June 07. Her diet was advanced to clears and then to low residue diet which the patient tolerated prior to discharge. She was discharged in medically stable
condition.
Discharge Plan
-
Patient Disposition: Home (Routine Discharge)
Discharge Diagnosis/Procedures: Acute small bowel obstruction
Condition: Good
Diet: Low Residue
Additional Diets: Low residue diet. Avoid ruffage in the future (no cabbage no carrots, etc)
Activity: As tolerated
Driving Restrictions: As prior to admission
Referrals:
Soni Sun PA-C [Family Provider, Family Practice] - in less than 1 week
Prescriptions:
Continued
alprazolam 0.5 MG tablet
0.75 mg PO HS
meclizine 12.5 MG tablet
12.5 mg PO TIDPRN PRN (Reason: vertigo)
famotidine 20 MG tablet
20 mg PO DAILY
pantoprazole 40 MG tablet,delayed release (DR/EC)
40 mg PO HS
escitalopram oxalate 20 MG tablet
20 mg PO DAILY
bupropion HCl 150 MG tablet extended release 24 hr
300 mg PO DAILY
losartan [Cozaar] 100 MG tablet
100 mg PO DAILY
melatonin 10 MG tablet
10 mg PO HS
metformin 500 mg Tablet Extended Release 24 Hr
1,000 mg PO BID
ikosjdo-bnaluquwxjchl-hhylwzdi [Excedrin Migraine] 250-250-65 mg Tablet
2 tab PO BIDPRN PRN (Reason: migraines)
rizatriptan 10 mg Tablet
10 mg PO PRN (Reason: Migraines)
Rx Instructions:
take 1 tab at onset of headache; if no relief may repeat 1 tab after at least 2 hrs; max = 3 tabs/24hr
(DME) blood-glucose meter [[employer]eli[employer] All-In-One Meter] Kit
Qty: 1 0RF
Rx Instructions:
As Directed
ropinirole 5 mg Tablet
5 mg PO HS
ondansetron HCl 4 mg Tablet
4 mg PO Q8H PRN (Reason: Nausea)
propranolol 40 mg Tablet
40 mg PO HS
Discharge Orders:
Discharge Patient (As Directed); Ordered 06/09/25
Ordered By: Cornelio Bustamante
Discharge Date and Time
Discharge Date/Time: 06/09/25 15:13
Print Language: [id number]
== END 2025-06-09 15:13 | disposition home or self-care (01) | DRG 386 ==
LOC: 4 EAST ACU 02:09
PROVIDERS: Surgery; ADMITTING PHYSICIAN Internal Medicine; ATTENDING PHYSICIAN Internal Medicine; CONSULT PHYSICIAN Internal Medicine Gastroenterology; EMERGENCY PHYSICIAN Student in an Organized Health Care Education/Training Program; FAMILY PHYSICIAN Physician Assistant Medical; OTHER PHYSICIAN Surgery
DX: K50.112 Crohn's disease of large intestine with intestinal obstruction (principal); E87.20 Acidosis, unspecified; K56.50 Intestinal adhesions [bands], unspecified as to partial versus complete obstruction; G43.909 Migraine, unspecified, not intractable, without status migrainosus; E66.09 Other obesity due to excess calories; E11.9 Type 2 diabetes mellitus without complications; I10 Essential (primary) hypertension; G25.81 Restless legs syndrome; D72.829 Elevated white blood cell count, unspecified; Z93.2 Ileostomy status; E78.5 Hyperlipidemia, unspecified; Z88.5 Allergy status to narcotic agent; Z79.899 Other long term (current) drug therapy; Z79.82 Long term (current) use of aspirin; Z79.84 Long term (current) use of oral hypoglycemic drugs; D50.9 Iron deficiency anemia, unspecified; F32.A Depression, unspecified; F41.1 Generalized anxiety disorder; G47.33 Obstructive sleep apnea (adult) (pediatric); Z90.49 Acquired absence of other specified parts of digestive tract; Z96.653 Presence of artificial knee joint, bilateral
CPT/HCPCS: 74022; 74177; 80048; 80053; 81003; 81015; 82962; 83036; 83605; 83690; 83735; 85025; 85027; 85652; 86140; 86803; 87077; 87086; 87186; 99285; Q9967

== ENCOUNTER → 2025-06-20 14:34 | Outpatient (REF) | payer MEDICARE, OTHER, SELFPAY ==
[2025-06-20 15:47] LABS: Hematocrit 38.1 % (37.0-47.0); Hemoglobin 12.8 g/dL (12.0-16.0); Mean Corp Hgb Conc. 33.6 g/dL (33.0-37.0); Mean Corpuscular Volume 89.6 fL (81.0-99.0); Nucleated Red Blood Cells % 0 %; Platelet Count 249 10^3/uL (130-400); Red Cell Dist. Width 13.1 % (11.5-14.5)
[2025-06-20 16:18] LABS: ALT (SGPT) 38 U/L (0-35); AST (SGOT) 39 U/L (14-36); Albumin 4.3 g/dl (3.5-5.0); Alkaline Phosphatase 119 U/L (38-126); Blood Urea Nitrogen 14 mg/dl (7-17); Calcium 9.2 mg/dl (8.4-10.2); Carbon Dioxide 26 mmol/L (22-30); Chloride 100 mmol/L (98-107); Glucose 96 mg/dl (70-99); HDL Cholesterol 53 mg/dl; LDL Cholesterol, Calculated 34 mg/dl; Magnesium 1.3 mg/dl (1.6-2.3); Potassium 4.0 mmol/L (3.5-5.1); Sodium 134 mmol/L (135-145); Total Protein 6.9 g/dl (6.3-8.2); Very Low Density Lipoprotein 33 mg/dl (0-30); eGFR > 60.00
[2025-06-20 16:25] LABS: Microalb - Urine Creatinine 51.700 mg/dl
[2025-06-20 16:30] LABS: Microalbumin, Random Urine 0.7 mg/dl (0.6-1.7)
[2025-06-20 16:34] LABS: Vitamin D, 25-OH*** 73.5 ng/mL (30-80)
== END ==
LOC: REG 14:34
PROVIDERS: ATTENDING PHYSICIAN Physician Assistant Medical
DX: D50.9 Iron deficiency anemia, unspecified (principal); E78.2 Mixed hyperlipidemia; E78.1 Pure hyperglyceridemia; F41.1 Generalized anxiety disorder; I10 Essential (primary) hypertension; K21.9 Gastro-esophageal reflux disease without esophagitis; R74.8 Abnormal levels of other serum enzymes; D72.819 Decreased white blood cell count, unspecified; M85.89 Other specified disorders of bone density and structure, multiple sites; E11.69 Type 2 diabetes mellitus with other specified complication; E55.9 Vitamin D deficiency, unspecified
CPT/HCPCS: 36415; 80053; 80061; 82043; 82306; 82570; 83735; 85025